=== PATIENT | female | born 1940 | race Caucasian/White ===

== ENCOUNTER 2020-01-03 16:36 | Emergency (ER) | payer MEDICARE, SELFPAY ==
[2020-01-03 16:48] VITALS: BP 121/72; PULSE 78; RESP 18; TEMP 36.2; O2SAT 95
--- NOTE | 2020-01-03 16:50 | ED.BACK ---
HPI - Back Pain/Injury General Chief Complaint: Urogenital-Female Stated Complaint: Back Pain Time Seen by Provider: 01/03/20 16:50 Source: patient and RN notes reviewed History of Present Illness HPI Narrative: Patient is a 79-year-old female who presents the urgent care with complaints of right-sided low back pain. Patient states that started this morning and she has not taken anything for her pain. Patient states she does have a history of a kidney stone in the right kidney but has never caused her issues and she has never had kidney stone removal. Patient denies any known trauma or injury. Denies any recent heavy lifting or strenuous activity. Denies of any urinary symptoms or complaints of abdominal pain. Denies of fever, chills, nausea, vomiting. No other acute complaints. No acute distress noted. Patient aware of the plan of care. Some parts of this dictation were generated by voice recognition software and may contain typographical and/or grammatical inaccuracies. Related Data Home Medications Medication Instructions Recorded Confirmed aspirin 81 mg PO DAILY 01/03/20 01/03/20 cholecalciferol (vitamin D3) 50 mcg PO DAILY 01/03/20 01/03/20 [Vitamin D3] cyanocobalamin (vitamin B-12) 2,000 mcg PO DAILY 01/03/20 01/03/20 [Vitamin B-12] dicyclomine 20 mg PO QID 01/03/20 01/03/20 hydrochlorothiazide 12.5 mg PO DAILY 01/03/20 01/03/20 levothyroxine 75 mcg PO DAILY 01/03/20 01/03/20 losartan 50 mg PO DAILY 01/03/20 01/03/20 metoprolol succinate 100 mg PO DAILY 01/03/20 01/03/20 pravastatin 10 mg PO DAILY 01/03/20 01/03/20 sitagliptin-metformin [Janumet XR] 1 tablet PO DAILY 01/03/20 01/03/20 spironolactone 25 mg PO DAILY 01/03/20 01/03/20 Allergies Allergy/AdvReac Type Severity Reaction Status Date / Time No Known Allergies Allergy Verified 01/03/20 17:05 Review of Systems Review of Systems: Narrative: CONSTITUTIONAL: Denies fever, chills, or sweats. EYES: Denies visual changes, redness, or discharge. ENT: Denies rhinorrhea, congestion, sore throat, or otalgia. CARDIOVASCULAR: Denies chest pain, palpitations, or edema. RESPIRATORY: Denies cough or dyspnea. GASTROINTESTINAL: Denies abdominal pain, nausea, vomiting, or diarrhea. GENITOURINARY: Denies dysuria or hematuria. SKIN: Denies rash or itching. MUSCULOSKELETAL: Reports of right-sided low back pain NEUROLOGIC: Denies headache, numbness, or weakness. All other systems reviewed are negative, except as documented in HPI. PMFSH Comments At the time of my signature, I reviewed and agree with the nursing past medical, surgical, social, and family history. There is no relevant family history pertinent to the patient complaint. Exam Narrative: Exam Narrative: GENERAL: This is a well-nourished, well-developed patient, in no apparent distress. HEAD: normocephalic, atraumatic. EYES: PERRL. Sclera clear/white. Vision is grossly intact. EARS: External ears normal NOSE: External nose normal with no obvious nasal discharge, nares without redness, no rhinorrhea. THROAT: Mucous membranes moist NECK: Neck supple CARDIOVASCULAR: Regular rate and rhythm without murmurs, gallops, or rubs. RESPIRATORY: Clear to auscultation. Breath sounds equal bilaterally. No wheezes, rales, or rhonchi. GASTROINTESTINAL: Abdomen soft, non-tender, nondistended. SKIN: warm, intact with no suspicious lesions or rash, good texture and turgor. NEURO: awake, alert, and oriented to person, place and time. There were no obvious focal neurologic abnormalities. EXTREMITIES: No clubbing, cyanosis, or edema. BACK: Mild to moderate low right lumbar tenderness with mild positive right SLE. Negative bilateral CVA tenderness Course Vital Signs Vital signs: Vital Signs Temperature 97.1 F L 01/03/20 16:48 Pulse Rate 78 01/03/20 16:48 Respiratory Rate 18 01/03/20 16:48 Blood Pressure 121/72 01/03/20 16:48 Pulse Oximetry 95 01/03/20 16:48 Temperature 97.1 F L 01/03/20 16:48
== END 2020-01-03 17:25 | disposition home or self-care (01) ==
PROVIDERS: Emergency Provider Nurse Practitioner Family; PCP Internal Medicine
DX: M54.5 Low back pain (principal); E78.00 Pure hypercholesterolemia, unspecified; I10 Essential (primary) hypertension; J44.9 Chronic obstructive pulmonary disease, unspecified; E11.9 Type 2 diabetes mellitus without complications
CPT/HCPCS: 81003; 99204; G0463

== ENCOUNTER 2021-08-24 13:40 | Emergency (ER) | payer MEDICARE, SELFPAY ==
[2021-08-24 13:53] VITALS: BP 150/64; PULSE 59; RESP 16; TEMP 36.7; O2SAT 97
--- NOTE | 2021-08-24 14:34 | ED.DIZZY ---
HPI - Dizziness General Chief Complaint: Dizziness Stated Complaint: dizzy and hoping its from ears Time Seen by Provider: 08/24/21 14:34 Source: patient Mode of arrival: ambulatory Limitations: no limitations History of Present Illness HPI Narrative: 80-year-old female presents with concern for dizziness intermittently for 1 week. Reports the dizziness is elicited when she moves her head or rolls over in bed. Reports the dizziness is intermittent and she may not have dizziness for several days. She also reports intermittent headache that may be on the left or the right. She denies vision changes, difficulty speaking, difficulty swallowing, weakness in any extremity, thunderclap headache. MD elicited complaint: dizziness Related Data Home Medications Medication Instructions Recorded Confirmed aspirin 81 mg PO DAILY 01/03/20 08/24/21 cholecalciferol (vitamin D3) 50 mcg PO DAILY 01/03/20 08/24/21 [Vitamin D3] cyanocobalamin (vitamin B-12) 2,000 mcg PO DAILY 01/03/20 08/24/21 [Vitamin B-12] dicyclomine 20 mg PO QID 01/03/20 08/24/21 hydrochlorothiazide 12.5 mg PO DAILY 01/03/20 08/24/21 levothyroxine 75 mcg PO DAILY 01/03/20 08/24/21 losartan 50 mg PO DAILY 01/03/20 08/24/21 metoprolol succinate 100 mg PO DAILY 01/03/20 08/24/21 pravastatin 10 mg PO DAILY 01/03/20 08/24/21 sitagliptin-metformin [Janumet XR] 1 tablet PO DAILY 01/03/20 08/24/21 spironolactone 25 mg PO DAILY 01/03/20 08/24/21 cholestyramine (with sugar) 4 ea PO DAILY 08/24/21 08/24/21 escitalopram oxalate 10 mg PO DAILY 08/24/21 08/24/21 Allergies Allergy/AdvReac Type Severity Reaction Status Date / Time No Known Allergies Allergy Verified 01/03/20 17:05 Review of Systems Review of Systems: CONSTITUTIONAL: Denies malaise, chills, sweats, or fever. EYES: Denies visual changes ENT: Denies rhinorrhea, congestion, sinus pain, otalgia or sore throat. CARDIOVASCULAR: Denies chest pain, palpitations, or edema. RESPIRATORY: Denies cough or dyspnea. GASTROINTESTINAL: Reports occasional nausea MUSCULOSKELETAL: Denies myalgia. NEUROLOGIC: Denies numbness, weakness reports intermittent headache and intermittent dizziness All systems reviewed & are unremarkable except as noted in HPI and below PMFSH Comments At time of signature, agree with nursing past medical, surgical, social and family history. There is no relevant family history pertinent to the presenting complaint Exam Narrative: GENERAL: Well-appearing, well-nourished, and in no acute distress. HEAD: Normocephalic, atraumatic. EYES: PERRLA, sclera clear, and EOMI. No nystagmus. ENT: Nares clear. Mucous membranes moist. TM pearly ca with sharp light reflex bilaterally; no tragal tenderness. NECK: Supple. No lymphadenopathy. No jugular venous distension, thyromegaly, or carotid bruits. Carotids were easily palpable bilaterally. CHEST: No respiratory distress. Speaks in full sentences. HEART: Regular rate and rhythm. No murmur heard. Normal peripheral pulses. EXTREMITIES: Normal range of motion. No edema. Normal strength and sensation. No drifting SKIN: Warm, dry, no visible rash. NEURO: Alert and oriented x3. No focal deficits. Cranial nerves II through XII grossly intact. Abel-Hallpike test positive on the left PSYCH: Normal mood and affect Course Course Emergency Course: Patient is aware of diagnosis, understands and agrees to treatment plan. Anticipatory guidance given. Patient agrees to follow-up as directed and is aware of reasons to seek care at the emergency department. Portions of this record may have been created with voice recognition software Level of Care: Express Care Visit Vital Signs Vital signs: Vital Signs Temperature 98.0 F 08/24/21 13:53 Pulse Rate 59 L 08/24/21 13:53 Respiratory Rate 16 08/24/21 13:53 Blood Pressure 150/64 H 08/24/21 13:53 Pulse Oximetry 97 08/24/21 13:53 Temperature 98.0 F 08/24/21 13:53 Pulse Rate 59 L 08/24/21 13:53 Respiratory
== END 2021-08-24 14:55 | disposition home or self-care (01) ==
PROVIDERS: Emergency Provider Nurse Practitioner; PCP Internal Medicine
DX: H81.12 Benign paroxysmal vertigo, left ear (principal); E78.00 Pure hypercholesterolemia, unspecified; I10 Essential (primary) hypertension; J44.9 Chronic obstructive pulmonary disease, unspecified; E11.9 Type 2 diabetes mellitus without complications; F32.A Depression, unspecified
CPT/HCPCS: 99213; G0463

== ENCOUNTER 2022-06-28 17:23 | Emergency (ER) | payer MEDICARE, SELFPAY ==
--- NOTE | 2022-06-28 17:25 | ED.LOWEXIN ---
HPI - Extremity Injury (Lower) General Chief Complaint: Extremity Injury, Lower Stated Complaint: Fall Injury/Left Leg Time Seen by Provider: 06/28/22 17:25 Source: patient and RN notes reviewed History of Present Illness HPI Narrative: Patient is a 81-year-old female who presents to urgent care with complaints of left lower leg swelling, pain and redness. Patient states her fell on top of her leg and then she had with a car door on Tuesday. Patient states that swelling and pain has gotten worse over the last couple days. Denies any history of DVT. Denies any shortness of breath or chest discomfort. States that she does take a baby aspirin a day. No other acute complaints. No acute distress noted. Patient aware of the plan of care. Some parts of this dictation were generated by voice recognition software and may contain typographical and/or grammatical inaccuracies. Related Data Home Medications Medication Instructions Recorded Confirmed aspirin 81 mg tablet,delayed 81 mg PO DAILY 01/03/20 08/24/21 release cholecalciferol (vitamin D3) 50 50 mcg PO DAILY 01/03/20 08/24/21 mcg (2,000 unit) capsule (Vitamin D3) cyanocobalamin (vitamin B-12) 2,000 mcg PO DAILY 01/03/20 08/24/21 2,000 mcg tablet,extended release (Vitamin B-12 ER) dicyclomine 20 mg tablet 20 mg PO QID 01/03/20 08/24/21 hydrochlorothiazide 12.5 mg tablet 12.5 mg PO DAILY 01/03/20 08/24/21 levothyroxine 75 mcg tablet 75 mcg PO DAILY 01/03/20 08/24/21 losartan 50 mg tablet 50 mg PO DAILY 01/03/20 08/24/21 metoprolol succinate 200 mg 100 mg PO DAILY 01/03/20 08/24/21 tablet,extended release 24 hr pravastatin 10 mg tablet 10 mg PO DAILY 01/03/20 08/24/21 sitagliptin phos 100 mg-metformin 1 tablet PO DAILY 01/03/20 08/24/21 ER 1,000 mg tablet,extend rel 24h mp (Janumet XR) spironolactone 25 mg tablet 25 mg PO DAILY 01/03/20 08/24/21 cholestyramine (with sugar) 4 gram 4 ea PO DAILY 08/24/21 08/24/21 oral powder escitalopram oxalate 10 mg tablet 10 mg PO DAILY 08/24/21 08/24/21 Allergies Allergy/AdvReac Type Severity Reaction Status Date / Time No Known Allergies Allergy Verified 01/03/20 17:05 Review of Systems Review of Systems: CONSTITUTIONAL: Denies fever, chills, or sweats. EYES: Denies visual changes, redness, or discharge. ENT: Denies rhinorrhea, congestion, sore throat, or otalgia. CARDIOVASCULAR: Denies chest pain, palpitations, or edema. RESPIRATORY: Denies cough or dyspnea. GASTROINTESTINAL: Denies abdominal pain, nausea, vomiting, or diarrhea. GENITOURINARY: Denies dysuria or hematuria. SKIN: Denies rash or itching. MUSCULOSKELETAL: Reports of left lower leg swelling, redness and pain NEUROLOGIC: Denies headache, numbness, or weakness. All other systems reviewed are negative, except as documented in HPI. PMFSH Comments At the time of my signature, I reviewed and agree with the nursing past medical, surgical, social, and family history. There is no relevant family history pertinent to the patient complaint. Exam Narrative: GENERAL: This is a well-nourished, well-developed patient, in no apparent distress. HEAD: normocephalic, atraumatic. EYES: PERRL. Sclera clear/white. Vision is grossly intact. EARS: External ears normal NOSE: External nose normal with no obvious nasal discharge, nares without redness, no rhinorrhea. THROAT: Mucous membranes moist NECK: Neck supple, non-tender without lymphadenopathy, masses or thyromegaly. CARDIOVASCULAR: Regular rate and rhythm RESPIRATORY: Clear to auscultation. Breath sounds equal bilaterally. No wheezes, rales, or rhonchi. SKIN: warm, intact with no suspicious lesions or rash, good texture and turgor. NEURO: awake, alert, and oriented to person, place and time. There were no obvious focal neurologic abnormalities. EXTREMITIES: 10 x 15 area of firm erythema with surrounding ecchymosis from the knee to the ankle and 2+ pitting edema to left lower extremity. Positi
[2022-06-28 17:36] VITALS: BP 129/68; PULSE 68; RESP 16; TEMP 36.6; O2SAT 98
== END 2022-06-28 18:04 | disposition left against medical advice (07) ==
PROVIDERS: Emergency Provider Nurse Practitioner Family; PCP Internal Medicine
DX: S89.92XA Unspecified injury of left lower leg, initial encounter (principal); Z79.82 Long term (current) use of aspirin; W50.0XXA Accidental hit or strike by another person, initial encounter
CPT/HCPCS: 99211; G0463

== ENCOUNTER 2025-03-26 07:36 | Outpatient (CLI) | payer MEDICARE, SELFPAY ==
--- OUTSIDE RECORDS SUMMARY | 2025-03-26 07:45 | XMS_ITS | Encounter Summary ---
Author Organization [facility] Address [address] [place] [address] Care Team Providers Care Automatic Nailing Machine Operator Name Role Phone Mychal Burgess MD Primary Care Provider [phone] Encounter Details Date Type Department Care Team (Late Contact Info) Description 01/13/2006 Outpatient Historical [facility] Internal Medicine [address] [address] Mychal Burgess MD [address] [place] [address] Social History Tobacco Use Types Packs/Day Years Used Date Smoking Tobacco: Never Assessed Comments Unknown Sex and Gender Information Value Date Recorded Sex Assigned at Not on file Legal Sex Female 3:58 AM TESTING AND REGULATING CHIEF Gender Identity Not on file Sexual Orientation Not on file documented as of this encounter Last Filed Vital Signs Vital Sign Reading Time Taken Comments Blood Pressure 122/72 01/13/2006 2:15 PM CDT Pulse - - Temperature - - Respiratory Rate - - Oxygen Saturation - - Inhaled Oxygen Concentration - - Weight 108 kg (238 lb) 01/13/2006 2:15 PM CDT Height - - Body Mass Index - - documented in this encounter Plan of Treatment Upcoming Encounters Date Type Department Care Team (Late Contact Info) Description 03/29/2025 9:40 AM TESTING AND REGULATING CHIEF Office Visit [facility] Primary Care [address] [place] [address] Mychal Burgess MD [address] [place] [address] [address] [place] [address] documented as of this encounter Visit Diagnoses Not on filedocumented in this encounter Care Teams Automatic Nailing Machine Operator Relationship Specialty Start Date End Date Mychal Burgess MD PCP - General 07/19/07 documented as of this encounter
--- OUTSIDE RECORDS SUMMARY | 2025-03-26 07:45 | XMS_ITS | Encounter Summary ---
Author Organization [facility] Address [address] [place] [address] Care Team Providers Care Cutter And Edge Trimmer Name Role Phone Mychal Burgess MD Primary Care Provider [phone] Reason for Visit * Reason Comments Needs Orders Written Encounter Details Date Type Department Care Team ([facility] st Contact Info) Description 03/25/2025 Telephone [facility] Primary Care [address] [place] [address] Mychal Burgess MD [address] [place] [address] [address] [place] [address] Needs Orders Written Social History Tobacco Use Types Packs/Day Years Used Date Smoking Tobacco: Former Cigarettes 1 35 0 04/11/1966 - 04/11/2001 Passive Smoke Exposure: Past Smokeless Tobacco: Never Alcohol Use Standard Drinks/Week Comments No 0 (1 standard drink = 0.6 oz pur e alcohol) Financial Resource Strain Answer Date R ecorded How hard is it for you to pa y for the very basics like food, housing, medical care, and heating? Not hard at all 05/26/2021 Food Insecurity Answer Date Recorded In the past 12 months, have you worried that your food would run out before you had money to buy more? Never true 05/26/2021 In the past 12 months, did y ou run out of food and didn't have money to buy more? Never true 05/26/2021 Transportation Needs Answer Date Record ed In the past 12 months, has l ack of transportation kept you from medical appointments or from getting medications? No 05/26/2021 Lack of Transportation (Non-Medical) Not on file 05/26/2021 Comments No Sex and Gender Information Value Date Recorded Sex Assigned at Not on file Legal Sex Female 3:58 AM RESILIENT TILE INSTALLER Gender Identity Not on file Sexual Orientation Not on file documented as of this encounter Miscellaneous Notes * Telephone Encounter - Ade Aquino RN - 03/25/2025 3:20 PM RESILIENT TILE INSTALLER Lab orders faxed to the number requested LIENT TILE INSTALLER * Telephone Encounter - Aristeo Rowland - 03/25/2025 3:05 PM RESILIENT TILE INSTALLER Copied from [facility] #[id number]. Topic: CPA Information Request - Order or Referral Request >> Mar 25, 2025 3:03 PM Ariseto Munoz wrote: Caller Name: Selena Mcnamara Patient/Caregiver Callback Number: Telephone Information: Call Notes: Please fax the lab orders to [facility] labs: [phone] Needing orders fax MARCO because she is going to get labs done tomorrow morning. Caller is requesting: New Lab Order Order: existing lab orders Reason for Request: to get done before upcoming appointment LIENT TILE INSTALLER documented in this encounter Plan of Treatment Upcoming Encounters Date Type Department Care Team (Late st Contact Info) Description 03/29/2025 9:40 AM RESILIENT TILE INSTALLER Office Visit [facility] [address] [place] [address] Mychal Burgess MD [address] [place] [address] [place] [address] documented as of this encounter Visit Diagnoses Not on filedocumented in this encounter Care Teams Cutter And Edge Trimmer Relationship Specialty Start Date End Date Mychal Burgess MD PCP - General 07/19/07 documented as of this encounter
--- OUTSIDE RECORDS SUMMARY | 2025-03-26 07:45 | XMS_ITS | Encounter Summary ---
Author Organization [facility] Address [address] [place] [address] Care Team Providers Care Sand Technologist Name Role Phone Mychal Burgess MD Primary Care Provider [phone] Encounter Details Date Type Department Care Team (Late st Contact Info) Description 12/11/2004 Outpatient Historical [facility] Internal Medicine [address] [address] Mychal Burgess MD [address] [place] [address] [address] [place] [address] Social History Tobacco Use Types Packs/Day Years Used Date Smoking Tobacco: Never Assessed Comments Unknown Sex and Gender Information Value Date Recorded Sex Assigned at Not on file Legal Sex Female 3:58 AM CONTRACT DESIGNER Gender Identity Not on file Sexual Orientation Not on file documented as of this encounter Last Filed Vital Signs Vital Sign Reading Time Taken Comments Blood Pressure 130/80 12/11/2004 9:30 AM CDT Pulse - - Temperature - - Respiratory Rate - - Oxygen Saturation - - Inhaled Oxygen Concentration - - Weight 104.3 kg (230 lb) 12/11/2004 9:30 AM CDT Height - - Body Mass Index - - documented in this encounter Plan of Treatment Upcoming Encounters Date Type Department Care Team (Late st Contact Info) Description 03/29/2025 9:40 AM CONTRACT DESIGNER Office Visit [facility] Primary Care [address] [place] [address] Mychal Burgess MD [address] [place] [address] [address] [place] [address] documented as of this encounter Visit Diagnoses Not on filedocumented in this encounter Care Teams Sand Technologist Relationship Specialty Start Date End Date Mychal Burgess MD PCP - General 07/19/07 documented as of this encounter
--- OUTSIDE RECORDS SUMMARY | 2025-03-26 07:45 | XMS_ITS | Encounter Summary ---
Author Organization [facility] Address [address] [place] [address] Care Team Providers Care Supervisor Cellars Name Role Phone Mychal Burgess MD Primary Care Provider [phone] Encounter Details Date Type Department Care Team (Late Contact Info) Description 10/01/2005 Outpatient Historical [facility] Internal Medicine [address] [address] Mychal Burgess MD [address] [place] [address] Social History Tobacco Use Types Packs/Day Years Used Date Smoking Tobacco: Never Assessed Comments Unknown Sex and Gender Information Value Date Recorded Sex Assigned at Not on file Legal Sex Female 3:58 AM SEAFOOD PREPARER Gender Identity Not on file Sexual Orientation Not on file documented as of this encounter Last Filed Vital Signs Vital Sign Reading Time Taken Comments Blood Pressure 132/80 10/01/2005 9:15 AM CDT Pulse - - Temperature - - Respiratory Rate - - Oxygen Saturation - - Inhaled Oxygen Concentration - - Weight 108 kg (238 lb) 10/01/2005 9:15 AM CDT Height - - Body Mass Index - - documented in this encounter Plan of Treatment Upcoming Encounters Date Type Department Care Team (Late Contact Info) Description 03/29/2025 9:40 AM SEAFOOD PREPARER Office Visit [facility] Primary Care [address] [place] [address] Mychal Burgess MD [address] [place] [address] [address] [place] [address] documented as of this encounter Visit Diagnoses Not on filedocumented in this encounter Care Teams Supervisor Cellars Relationship Specialty Start Date End Date Mychal Burgess MD PCP - General 07/19/07 documented as of this encounter
--- OUTSIDE RECORDS SUMMARY | 2025-03-26 07:45 | XMS_ITS | Encounter Summary ---
Author Organization [facility] Address [address] [place] [address] Care Team Providers Care Air Saw Operator Name Role Phone Mychal Burgess MD Primary Care Provider [phone] Encounter Details Date Type Department Care Team (Late Contact Info) Description 11/29/2003 Outpatient Historical [facility] Internal Medicine [address] [address] Mychal Burgess MD [address] [place] [address] Social History Tobacco Use Types Packs/Day Years Used Date Smoking Tobacco: Never Assessed Comments Unknown Sex and Gender Information Value Date Recorded Sex Assigned at Not on file Legal Sex Female 3:58 AM MANAGED CARE PROVIDER Gender Identity Not on file Sexual Orientation Not on file documented as of this encounter Plan of Treatment Upcoming Encounters Date Type Department Care Team (Late st Contact Info) Description 03/29/2025 9:40 AM MANAGED CARE PROVIDER Office Visit [facility] Primary Care [address] [place] [address] Mychal Burgess MD [address] [place] [address] [address] [place] [address] documented as of this encounter Visit Diagnoses Not on filedocumented in this encounter Care Teams Air Saw Operator Relationship Specialty Start Date End Date Mychal Burgess MD PCP - General 07/19/07 documented as of this encounter
--- OUTSIDE RECORDS SUMMARY | 2025-03-26 07:45 | XMS_ITS | Encounter Summary ---
Author Organization [facility] Address [address] [place] [address] Care Team Providers Care Landfill Gas Plant Field Technician Name Role Phone Mychal Burgess MD Primary Care Provider [phone] Encounter Details Date Type Department Care Team (Late Contact Info) Description 11/29/2003 Outpatient Historical [facility] Internal Medicine [address] [address] Mychal Burgess MD [address] [place] [address] Social History Tobacco Use Types Packs/Day Years Used Date Smoking Tobacco: Never Assessed Comments Unknown Sex and Gender Information Value Date Recorded Sex Assigned at Not on file Legal Sex Female 3:58 AM TECHNICAL SALES REPRESENTATIVES Gender Identity Not on file Sexual Orientation Not on file documented as of this encounter Plan of Treatment Upcoming Encounters Date Type Department Care Team (Late st Contact Info) Description 03/29/2025 9:40 AM TECHNICAL SALES REPRESENTATIVES Office Visit [facility] Primary Care [address] [place] [address] Mychal Burgess MD [address] [place] [address] [address] [place] [address] documented as of this encounter Visit Diagnoses Not on filedocumented in this encounter Care Teams Landfill Gas Plant Field Technician Relationship Specialty Start Date End Date Mychal Burgess MD PCP - General 07/19/07 documented as of this encounter
--- OUTSIDE RECORDS SUMMARY | 2025-03-26 07:45 | XMS_ITS | Encounter Summary ---
Author Organization [facility] Address [address] [place] [address] Care Team Providers Care Ingredient Scaler Name Role Phone Mychal Burgess MD Primary Care Provider [phone] Encounter Details Date Type Department Care Team (Late st Contact Info) Description 10/22/2005 Outpatient Historical [facility] Internal Medicine [address] [address] Mychal Burgess MD [address] [place] [address] [address] [place] [address] Social History Tobacco Use Types Packs/Day Years Used Date Smoking Tobacco: Never Assessed Comments Unknown Sex and Gender Information Value Date Recorded Sex Assigned at Not on file Legal Sex Female 3:58 AM CONSTRUCTION EQUIPMENT MECHANIC HELPER Gender Identity Not on file Sexual Orientation Not on file documented as of this encounter Last Filed Vital Signs Vital Sign Reading Time Taken Comments Blood Pressure 112/70 10/22/2005 11:45 AM CDT Pulse - - Temperature 36.2 C (97.2 F) 10/22/2005 11:45 AM CDT Respiratory Rate - - Oxygen Saturation - - Inhaled Oxygen Concentration - - Weight 107 kg (236 lb) 10/22/2005 11:45 AM CDT Height - - Body Mass Index - - documented in this encounter Plan of Treatment Upcoming Encounters Date Type Department Care Team (Late Contact Info) Description 03/29/2025 9:40 AM CONSTRUCTION EQUIPMENT MECHANIC HELPER Office Visit [facility] Primary Care [address] [place] [address] Mychal Burgess MD [address] [place] [phone] documented as of this encounter Visit Diagnoses Not on filedocumented in this encounter Care Teams Ingredient Scaler Relationship Specialty Start Date End Date Mychal Burgess MD PCP - General 07/19/07 documented as of this encounter
--- OUTSIDE RECORDS SUMMARY | 2025-03-26 07:45 | XMS_ITS | Encounter Summary ---
Author Organization [facility] Address [address] [place] [address] Care Team Providers Care Coffee Grower Name Role Phone Mychal Burgess MD Primary Care Provider [phone] Encounter Details Date Type Department Care Team (Late Contact Info) Description 07/08/2006 Outpatient Historical [facility] Internal Medicine [address] [address] Mychal Burgess MD [address] [place] [address] Social History Tobacco Use Types Packs/Day Years Used Date Smoking Tobacco: Never Assessed Comments Unknown Sex and Gender Information Value Date Recorded Sex Assigned at Not on file Legal Sex Female 3:58 AM LINUX NETWORK ENGINEER Gender Identity Not on file Sexual Orientation Not on file documented as of this encounter Last Filed Vital Signs Vital Sign Reading Time Taken Comments Blood Pressure 120/74 07/08/2006 9:45 AM CDT Pulse - - Temperature - - Respiratory Rate - - Oxygen Saturation - - Inhaled Oxygen Concentration - - Weight 112 kg (247 lb) 07/08/2006 9:45 AM CDT Height - - Body Mass Index - - documented in this encounter Plan of Treatment Upcoming Encounters Date Type Department Care Team (Late Contact Info) Description 03/29/2025 9:40 AM LINUX NETWORK ENGINEER Office Visit [facility] Primary Care [address] [place] [address] Mychal Burgess MD [address] [place] [address] [address] [place] [address] documented as of this encounter Visit Diagnoses Not on filedocumented in this encounter Care Teams Coffee Grower Relationship Specialty Start Date End Date Mychal Burgess MD PCP - General 07/19/07 documented as of this encounter
--- OUTSIDE RECORDS SUMMARY | 2025-03-26 07:45 | XMS_ITS | Encounter Summary ---
Author Organization [facility] Address [address] [place] [address] Care Team Providers Care Android Software Engineer Name Role Phone Mychal Burgess MD Primary Care Provider [phone] Encounter Details Date Type Department Care Team (Late Contact Info) Description 11/29/2003 Outpatient Historical [facility] Internal Medicine [address] [address] Mychal Burgess MD [address] [place] [address] Social History Tobacco Use Types Packs/Day Years Used Date Smoking Tobacco: Never Assessed Comments Unknown Sex and Gender Information Value Date Recorded Sex Assigned at Not on file Legal Sex Female 3:58 AM AUTOMOTIVE ENGINEERING TEACHER Gender Identity Not on file Sexual Orientation Not on file documented as of this encounter Plan of Treatment Upcoming Encounters Date Type Department Care Team (Late st Contact Info) Description 03/29/2025 9:40 AM AUTOMOTIVE ENGINEERING TEACHER Office Visit [facility] Primary Care [address] [place] [address] Mychal Burgess MD [address] [place] [address] [address] [place] [address] documented as of this encounter Visit Diagnoses Not on filedocumented in this encounter Care Teams Android Software Engineer Relationship Specialty Start Date End Date Mychal Burgess MD PCP - General 07/19/07 documented as of this encounter
--- OUTSIDE RECORDS SUMMARY | 2025-03-26 07:45 | XMS_ITS | Encounter Summary ---
Author Organization [facility] Address [address] [place] [address] Care Team Providers Care Washhouse Worker Name Role Phone Mychal Burgess MD Primary Care Provider [phone] Encounter Details Date Type Department Care Team (Late st Contact Info) Description 08/20/2005 Orders Only [facility] Internal Medicine [address] [address] Mychal Burgess MD [address] [place] [address] Social History Tobacco Use Types Packs/Day Years Used Date Smoking Tobacco: Never Assessed Comments Unknown Sex and Gender Information Value Date Recorded Sex Assigned at Not on file Legal Sex Female 3:58 AM HEDIS COORDINATOR Gender Identity Not on file Sexual Orientation Not on file documented as of this encounter Progress Notes * Mychal Burgess MD - 01/19/2008 4:28 AM CDT TIME:02:28 pm PATIENT`S HOME PHONE: PATIENT`S WORK PHONE: PATIENT`S INSURANCE: [employer] WHO TOOK THE CALL: Margarita Brown S GENERAL INFORMATION WHO CALLED: Pharmacy called.[phone] SECTION 1: REQUESTED ACTION karan 08/20/05 at 02:29 pm: MEDICATION REQUEST: MEDICATION REQUEST: Patient requests a refill. Clonidine 1mg #60 last filled 07/22 DOCTOR`S RESPONSE: bari 08/20/05 at 02:34 pm MEDICATIONS: CLONIDINE HCL ORAL TABLET 0.1 MG, 1 Two Times A Day, 60 Dispensed, 4 Fills, status: CONTINUED, 08/20/2005. FINAL ACTION: karina 08/20/05 at 02:38 pm Called pharmacy at 08/20/05 at 02:38 pm. Electronically Signed by: Ely Corral on Saturday, August 20, 2005 documented in this encounter Plan of Treatment Upcoming Encounters Date Type Department Care Team (Late st Contact Info) Description 03/29/2025 9:40 AM HEDIS COORDINATOR Office Visit [facility] Primary Care [address] [place] [address] Mychal Burgess MD [address] [place] [address] documented as of this encounter Visit Diagnoses Not on filedocumented in this encounter Care Teams Washhouse Worker Relationship Specialty Start Date End Date Mychal Burgess MD PCP - General 07/19/07 documented as of this encounter
--- OUTSIDE RECORDS SUMMARY | 2025-03-26 07:45 | XMS_ITS | Encounter Summary ---
Author Organization [facility] Address [address] [place] [address] Care Team Providers Care Selling Specialist Name Role Phone Mychal Burgess MD Primary Care Provider [phone] Encounter Details Date Type Department Care Team (Late Contact Info) Description 10/25/2006 Orders Only [facility] Internal Medicine [address] [address] Mychal Burgess MD [address] [place] [address] Social History Tobacco Use Types Packs/Day Years Used Date Smoking Tobacco: Never Assessed Comments Unknown Sex and Gender Information Value Date Recorded Sex Assigned at Not on file Legal Sex Female 3:58 AM OFFICE PROFESSIONAL Gender Identity Not on file Sexual Orientation Not on file documented as of this encounter Plan of Treatment Upcoming Encounters Date Type Department Care Team (Late Contact Info) Description 03/29/2025 9:40 AM OFFICE PROFESSIONAL Office Visit [facility] Primary Care [address] [place] [address] Mychal Burgess MD [address] [place] [address] [address] [place] [address] documented as of this encounter Visit Diagnoses Not on filedocumented in this encounter Care Teams Selling Specialist Relationship Specialty Start Date End Date Mychal Burgess MD PCP - General 07/19/07 documented as of this encounter
--- OUTSIDE RECORDS SUMMARY | 2025-03-26 07:45 | XMS_ITS | Clinical Summary ---
Author Organization [facility] Address [address] [place] [address] Care Team Providers Care Crank Hand Name Role Phone Mychal Burgess MD Primary Care Provider + Allergies No known active allergies Medications diphenoxylate- atropine (LOMOTIL) 2.5-0.025 mg per tablet take 1 tablet (2.5MG) by ORAL route every day 0 12/10/19 12 Active Additional Information Patient not taking.Reported on 02/27/2025 spironolactone (ALDACTONE) 25 mg tablet take 1 tablet (25MG) by ORAL route every day 0 12/10/19 12 Active losartan (COZAAR) 50 mg tablet take 1 tablet (50MG) by oral route every day 0 12/10/19 12 Active metoprolol XL (TOPROL-XL) 100 mg 24 hr tablet take 1 tablet (100MG) by oral route every day 0 12/10/19 12 Active dicyclomine (BENTYL) 20 mg tablet TAKE ONE TABLET BY MOUTH FOUR TIMES DAILY 120 tablet 10/30/19 17 Active cholestyramine (QUESTRAN) 4 gram packet TAKE 1 PACKET DISSOLVED IN 2 TO 6 OUNCES OF WATER OR NONCARBONATED BEVERAGE BY MOUTH THREE TIMES DAILY 90 packet 11 04/20/19 19 Active Additional Information Patient not taking.Reported on 02/27/2025 albuterol HFA (PROVENTIL HFA,VENTOLIN HFA,PROAIR HFA) 90 mcg/actuation inhaler Inhale 2 puffs every 6 (six) hours as needed 01/11/20 17 Active fluticasone propionate (FLONASE) 50 mcg/actuation nasal spray Administer 2 sprays into affected nostril(s) daily 05/12/19 16 Active pravastatin (PRAVACHOL) 10 mg tablet TAKE 1 TABLET(10 MG) BY MOUTH IN THE EVENING 06/29/19 20 Active cholecalcifero l (VITAMIN D-3) 1,000 unit capsule Take 2 capsules by mouth daily Active calcium carbonate (CALCIUM 600 ORAL) Take 2 mg by mouth Active cyanocobalamin (Vitamin B-12) 1,000 mcg tabletIndicati ons:Prevention of Vitamin B12 Deficiency Take 1,000 mcg by mouth daily Active SITagliptin-me tformin (Janumet XR) 100-1,000 mg tablet, ER multiphase 24 hr TAKE 1 TABLET BY MOUTH EVERY DAY 07/09/19 21 Active blood glucose diagnostic strip One touch ultra mini, DX type 2 DM 09/19/19 21 Active furosemide (LASIX) 20 mg tablet Take 20 mg by mouth daily as needed 10/25/19 18 Active lancets misc Qd check one touch ultra 09/19/19 21 Active aspirin 81 mg enteric coated tablet Take 1 tablet by mouth daily Active amLODIPine (NORVASC) 5 mg tablet Take 1 tablet (5 mg total) by mouth daily Active busPIRone (BUSPAR) 10 mg tablet Take 1 tablet (10 mg total) by mouth 2 (two) times a day 11/22/19 25 Active fluocinonide (LIDEX) 0.05 % external solution 2-3 drops affected ear daily PRN itching 06/09/19 24 Active hydrALAZINE (APRESOLINE) 10 mg tablet TAKE 1 TABLET (10 MG) BY MOUTH 3 TIMES DAILY. Active metFORMIN XR (GLUCOPHAGE XR) 500 mg 24 hr tablet TAKE 2 TABLETS (1000 MG) BY MOUTH DAILY WITH BREAKFAST 01/12/20 25 Active Ozempic 0.25 mg or 0.5 mg (2 mg/3 mL) pen injector injection Inject 0.5 mg under the skin once a week 05/23/19 25 Active hydroCHLOROthi azide 12.5 mg capsule Take 1 tablet/capsule (12.5 mg total) by mouth daily 12/24/19 25 Active levothyroxine (SYNTHROID) 137 mcg tablet TAKE 1 TABLET (137 MCG) BY MOUTH DAILY IN THE MORNING. 12/04/19 25 Active hydroCHLOROthi azide (HYDRODIURIL) 25 mg tablet take 1 tablet (25MG) by oral route every day 0 12/10/19 12 025 Discontin ued(Dose adjustmen t) levothyroxine (LEVOTHROID) 50 mcg tablet take 1 tablet (50MCG) by oral route every day 0 12/10/19 12 025 Discontin ued(Dose adjustmen t) Active Problems Problem Noted Date Diagnosed Date Encounter for screening colonoscopy 01/02/2020 Overview (01/02/2020): Added automatically from request for surgery [id number] Family history of colon cancer 01/02/2020 Overview (01/02/2020): Added automatically from request for surgery [id number] Encounters Date Type Department Care Team Description 02/27/2025 9:00 AM EDITING COMPUTER PUBLISHER Office Visit [facility] [address] [place] [address] Bhargavi Gotti NP Foreign body of right ear, initial encounter (Primary Dx) from Last 3 Months Surgical History Surgery Date Site/Laterality Comments OTHER SURGICAL HISTORY 04/11/1997 - 04/10/1998 surgery on both feet CARDIAC CATHETERIZATION 04/11/2002 - 04/10/2003 cardiac catheterization CHOLECYSTECTOMY 04/11/2008 - 04/10/2009 Cholecystectomy HYSTERECTOMY 04/11/1984 - 04/10/1985 Hysterectomy OOPHORECTOMY 04/11/2004 - 04/10/2005 COLONOSCOPY 01/09/2010 - 02/08/2010 COLONOSCOPY 01/25/2020 Medical History Medical History Date Comments Hypertension Hypertension Disorder of thyroid Thyroid dise ase Calculus of kidney Nephrolithias is Hyperlipidemia Hyperlipidemia Family History Medical History Relation Name Comments Heart disease Father Heart disease; Heart disease Mother Heart disease; Hypertension Mother Hypertension; Stroke Mother Stroke; Other Sister 2 Auto accident; Hypertension Sister 3 Hypertension; Diabetes type II Sister 4 Diabetes me llitus type 2; Brain cancer Sister 5 Cancer -brain; Bladder Cancer Sister 6 Cancer, bladd er; Cause of : Cancer, bladder Breast cancer Neg Hx Ovarian cancer Neg Hx Thyroid cancer Neg Hx Relation Name Status Comments Father Mother Sister 1 Sister 2 Sister 3 Sister 4 Sister 5 Sister 6 Social History Tobacco Use Types Packs/Day Years Used Date Smoking Tobacco: Former Smokeless Tobacco: Never Alcohol Use Standard Drinks/Week Comments Yes 0 (1 standard drink = 0.6 oz pur e alcohol) Comments No Sex and Gender Information Value Date Recorded Sex Assigned at Not on file Legal Sex Female 1:26 AM EDITING COMPUTER PUBLISHER Gender Identity Not on file Sexual Orientation Not on file Obstetrics History Para Term AB IAB SAB Ectopic Multiple Livin g Live Births 3 3 3 Date Outcome GA Total Labor Labor/2nd/3rd Weight Sex Type Anes PTL Delicia A1 A5 Name Clin Term Term Term Last Filed Vital Signs Vital Sign Reading Time Taken Comments Blood Pressure 116/58 02/27/2025 8:54 AM EDITING COMPUTER PUBLISHER Pulse 68 02/27/2025 8:54 AM EDITING COMPUTER PUBLISHER Temperature 36.6 C (97.9 F) 02/27/2025 8:54 AM EDITING COMPUTER PUBLISHER Respiratory Rate 17 02/27/2025 8:54 AM EDITING COMPUTER PUBLISHER Oxygen Saturation 95% 02/27/2025 8:54 AM EDITING COMPUTER PUBLISHER Inhaled Oxygen Concentration - - Weight 88.4 kg (194 lb 12.8 oz) 02/27/2025 8:54 AM EDITING COMPUTER PUBLISHER Height 165.1 cm (5' 5) 02/27/2025 8:54 AM EDITING COMPUTER PUBLISHER Body Mass Index 32.42 02/27/2025 8:54 AM EDITING COMPUTER PUBLISHER Plan of Treatment Health Maintenance Due Date Last Done Comments Depression Screening 1942 Hepatitis B Screening 1960 Well Visit 65+ 12/14/2007 Fall Risk Assessment 01/24/2021 01/25/2020 Influenza Vaccine (#1) 2024 , 01/19/2023, 12/21/2021, Additional history exists Osteoporosis Screening-Bone Density Scan 03/29/2025 03/29/2023, 06/02/2020, 06/02/2020, Additional history exists DTaP/Tdap/Td Vaccine (3 - Td or Tdap) 12/20/2033 12/21/2023, 02/27/2014, 11/29/2003 Zoster Vaccine Completed 11/09/2017, 07/11, 07/30/2013 Pneumococcal vaccine 65+ Completed 024, 08/01/2018, 07/30/2013, Additional history exists Procedures Procedure Name Priority Date/Time Associated Diagnosis Comments AR RMVL FB XTRNL AUDITORY CANAL W/O ANES Routine 02/27/2025 9:17 AM EDITING COMPUTER PUBLISHER Foreign body of right ear, initial encounter DEXA AXIAL SKELETON BONE DENSITY 1 OR MORE SITES Schedule Routine, Read Routine (OP Routine) 03/29/2023 11:01 AM EDITING COMPUTER PUBLISHER Osteopenia of multiple sites from Last 3 Months or Most Recently Relevant to Health Maintenance Results * AR RMVL FB XTRNL AUDITORY CANAL W/O ANES (02/27/2025 9:17 AM EDITING COMPUTER PUBLISHER) Narrative Bhargavi Gotti NP - 02/27/2025 9:17 AM EDITING COMPUTER PUBLISHER Bhargavi Gotti NP 02/27/2025 9:21 AM Foreign Body Removal Date/Time: 02/27/2025 9:17 AM Performed by: Bhargavi Gotti NP Authorized by: Bhargavi Gotti NP Consent: Consent obtained: Verbal Consent given by: Patient Risks discussed: Bleeding, incomplete removal, nerve damage, infection, pain, poor cosmetic result and worsening of condition [place] protocol: Procedure explained and questions answered to patient or proxy's satisfaction: yes Patient identity confirmed: Verbally with patient Location: Location: Ear Ear location: R ear Tendon involvement: None Pre-procedure details: Imaging: None Procedure details: Localization method: Visualized Dissection of underlying tissues: no Bloodless field: yes Removal mechanism: Forceps Post-procedure details: Neurovascular status: intact Confirmation: No additional foreign bodies on visualization Skin closure: None Procedure completion: Tolerated Comments: Tip of hearing aid noted to right ear canal. No erythema/edema to the surrounding tissue. No discharge or bleeding noted. Tip of hearing aid was easily removed with alligator forceps. Exam after shows the TM is intact, no erythema/edema to surrounding tissue, no discharge or bleeding noted. us Bhargavi Gotti NP IN CLINIC/BEDSIDE ORDERABL ES Final Result * Dexa Axial Skeleton Bone Density 1 or 2 Site (03/29/2023 11:01 AM EDITING COMPUTER PUBLISHER) Anatomical Region Laterality Modality Body N/A Other 03/29/2023 5:41 PM EDITING COMPUTER PUBLISHER Narrative 03/29/2023 5:42 PM EDITING COMPUTER PUBLISHER EXAM DESCRIPTION: DEXA AXIAL SKELETON BONE DENSITY 1 OR MORE SITES REASON FOR STUDY: 82 y/o year old F with given history of: osteopenia Screening. Postmenopausal Real Estate Services Coordinator/Model: [employer] Discovery SL ([id number]/N [id number]) CLINICAL INFORMATION: Current height: 65 inches Maximum height: 66 inches Weight: 206 pounds Risk factors: Postmenopausal, adult fracture, inflammatory disease COMPARISON: 06/02/2020, 08/02/2017 Dissimilar scan types or analysis methods precludes assessment for calculating a significant change. FINDINGS: AP LUMBAR SPINE L1-L4: Total BMD is 1.138 g/cm2 T-score is 0.8 LEFT HIP: Total BMD is 0.957 g/cm2 T-score is 0.1 Femoral neck BMD is 0.716 g/cm2 T-score is -1.2 FRAX: 10 year risk for a major osteoporotic fracture is 17 %, 10 year risk for a hip fracture is 3.1 % IMPRESSION: Low Bone Mass. REFERENCE: Bone mineral density: Normal (T-score above or = -1.0) Low bone mass (T-score between -1.0 and -2.5) replaces the previously used term osteopenia Osteoporosis (T-score = or below -2.5) Medical evaluation for secondary causes of low bone mineral density may be appropriate. FRAX is a World Health Organization validated fracture risk assessment tool that calculates a person's 10 year probability of a major osteoporosis related fracture and hip fracture. According to the National Osteoporosis Foundation guidelines, postmenopausal women and men age 50 or older with low bone mass and a 10 year probability of a major osteoporosis related fracture = or greater than 20% or a 10 year probability of a hip fracture = or greater than 3% should be considered for treatment. For further information, including treatment recommendations, please refer to the 2019 ISCD Official Positions (http://www.iscd.org) and the NOF's Clinician's Guide to Prevention and Treatment of Osteoporosis (http://www.nof.org/professionals/clinical-guidelines) THIS IS AN ELECTRONICALLY VERIFIED FINAL REPORT 03/29/2023 5:42 PM - Electronically signed by Serge Coles M.D. MF: TESSIE Report ID: [id number] Reading Location: [id number] Note Serge Coles MD - 03/29/2023 EXAM DESCRIPTION: DEXA AXIAL SKELETON BONE DENSITY 1 OR MORE SITES REASON FOR STUDY: 82 y/o year old F with given history of: osteopenia Screening. Postmenopausal Real Estate Services Coordinator/Model: [employer] Discovery SL ([id number]/N [id number]) CLINICAL INFORMATION: Current height: 65 inches Maximum height: 66 inches Weight: 206 pounds Risk factors: Postmenopausal, adult fracture, inflammatory disease COMPARISON: 06/02/2020, 08/02/2017 Dissimilar scan types or analysis methods precludes assessment for calculating a significant change. FINDINGS: AP LUMBAR SPINE L1-L4: Total BMD is 1.138 g/cm2 T-score is 0.8 LEFT HIP: Total BMD is 0.957 g/cm2 T-score is 0.1 Femoral neck BMD is 0.716 g/cm2 T-score is -1.2 FRAX: 10 year risk for a major osteoporotic fracture is 17 %, 10 year risk for ahip fracture is 3.1 % IMPRESSION: Low Bone Mass. REFERENCE: Bone mineral density: Normal (T-score above or = -1.0) Low bone mass (T-score between -1.0 and -2.5) replaces thepreviously used term osteopenia Osteoporosis (T-score = or below -2.5) Medical evaluation for secondary causes of low bone mineral density may be appropriate. FRAX is a World Health Organization validated fracture risk assessmenttool that calculates a person's 10 year probability of a major osteoporosisrelated fracture and hip fracture. According to the National OsteoporosisFoundation guidelines, postmenopausal women and men age 50 or older with low bonemass and a 10 year probability of a major osteoporosis related fracture = or greater than 20% or a 10 year probability of a hip fracture = or greaterthan 3% should be considered for treatment. For further information, including treatment recommendations, please referto the 2019 ISCD Official Positions (http://www.iscd.org) and the NOF's Clinician's Guide to Prevention and Treatment of Osteoporosis (http://www.nof.org/professionals/clinical-guidelines) THIS IS AN ELECTRONICALLY VERIFIED FINAL REPORT 03/29/2023 5:42 PM - Electronically signed by Serge Coles M.D. MF: TESSIE Report ID: [id number] Reading Location: [place] [address] Mychal Burgess MD IMG DXA PROCEDURES Final Result from Last 3 Months or Most Recently Relevant to Health Maintenance Insurance [facility] Member Subscriber Plan / Payer ( fective 2020-Present) Name:Selena Mcnamara Relation to Subscriber:Self Name:Selena Mcnamara Payer ID:[id number] (NAIC) Group ID:[id number] Type:[employer] Address: [address] [facility] MEDICARE [facility] MEDICARE SUPPLEMENT Advance Directives For more information, please contact: [phone] * Full Code (Latest Code Status on File) Date Activated Date Inactivated Comments 01/25/2020 7:37 AM 01/25/2020 2:13 PM Care Teams Crank Hand Relationship Specialty Start Date End Date Mychal Burgess MD PCP - General 12/10/11
--- OUTSIDE RECORDS SUMMARY | 2025-03-26 07:45 | XMS_ITS | Encounter Summary ---
Author Organization [facility] Address [address] [place] [address] Care Team Providers Care Blind Installer Name Role Phone Mychal Burgess MD Primary Care Provider + Encounter Details Date Type Department Care Team (Late st Contact Info) Description 03/28/2023 Telephone [facility] [address] [place] [id number] Tatiana Prather, RT Social History Tobacco Use Types Packs/Day Years Used Date Smoking Tobacco: Former Smokeless Tobacco: Never Alcohol Use Standard Drinks/Week Comments Yes 0 (1 standard drink = 0.6 oz pur e alcohol) Comments No Sex and Gender Information Value Date Recorded Sex Assigned at Not on file Legal Sex Female 1:26 AM LOAN OFFICER Gender Identity Not on file Sexual Orientation Not on file documented as of this encounter Plan of Treatment Not on file documented as of this encounter Visit Diagnoses Not on filedocumented in this encounter Care Teams Blind Installer Relationship Specialty Start Date End Date Mychal Burgess MD PCP - General 12/10/11 documented as of this encounter
--- OUTSIDE RECORDS SUMMARY | 2025-03-26 07:45 | XMS_ITS | Encounter Summary ---
Author Organization [facility] Address [address] [place] [address] Care Team Providers Care President And Chief Executive Officer Name Role Phone Mychal Burgess MD Primary Care Provider [phone] Encounter Details Date Type Department Care Team (Late Contact Info) Description 03/31/2007 Outpatient Historical [facility] Internal Medicine [address] [address] Mychal Burgess MD [address] [place] [address] Social History Tobacco Use Types Packs/Day Years Used Date Smoking Tobacco: Never Assessed Comments Unknown Sex and Gender Information Value Date Recorded Sex Assigned at Not on file Legal Sex Female 3:58 AM SENIOR COST ANALYST Gender Identity Not on file Sexual Orientation Not on file documented as of this encounter Plan of Treatment Upcoming Encounters Date Type Department Care Team (Late st Contact Info) Description 03/29/2025 9:40 AM SENIOR COST ANALYST Office Visit [facility] Primary Care [address] [place] [address] Mychal Burgess MD [address] [place] [address] [address] [place] [address] documented as of this encounter Visit Diagnoses Not on filedocumented in this encounter Care Teams President And Chief Executive Officer Relationship Specialty Start Date End Date Mychal Burgess MD PCP - General 07/19/07 documented as of this encounter
--- OUTSIDE RECORDS SUMMARY | 2025-03-26 07:45 | XMS_ITS | Encounter Summary ---
Author Organization [facility] Address [address] [place] [address] Care Team Providers Care Hooker On Name Role Phone Mychal Burgess MD Primary Care Provider [phone] Encounter Details Date Type Department Care Team (Late Contact Info) Description 07/27/2006 Orders Only [facility] Internal Medicine [address] [address] Mychal Burgess MD [address] [place] [address] Social History Tobacco Use Types Packs/Day Years Used Date Smoking Tobacco: Never Assessed Comments Unknown Sex and Gender Information Value Date Recorded Sex Assigned at Not on file Legal Sex Female 3:58 AM HEAD OF PHYSICS Gender Identity Not on file Sexual Orientation Not on file documented as of this encounter Plan of Treatment Upcoming Encounters Date Type Department Care Team (Late st Contact Info) Description 03/29/2025 9:40 AM HEAD OF PHYSICS Office Visit [facility] Primary Care [address] [place] [address] Mychal Burgess MD [address] [place] [address] [address] [place] [address] documented as of this encounter Visit Diagnoses Not on filedocumented in this encounter Care Teams Hooker On Relationship Specialty Start Date End Date Mychal Burgess MD PCP - General 07/19/07 documented as of this encounter
--- OUTSIDE RECORDS SUMMARY | 2025-03-26 07:45 | XMS_ITS | Encounter Summary ---
Author Organization [facility] Address [address] [place] [address] Care Team Providers Care Windows Systems Admin Name Role Phone Mychal Burgess MD Primary Care Provider [phone] Encounter Details Date Type Department Care Team (Late Contact Info) Description 04/09/[address] [facility] Internal Medicine [address] [address] Mychal Burgess MD [address] [place] [address] Social History Tobacco Use Types Packs/Day Years Used Date Smoking Tobacco: Never Assessed Comments Unknown Sex and Gender Information Value Date Recorded Sex Assigned at Not on file Legal Sex Female 3:58 AM WHITE WASHER Gender Identity Not on file Sexual Orientation Not on file documented as of this encounter Last Filed Vital Signs Vital Sign Reading Time Taken Comments Blood Pressure 138/70 04/09/2004 9:45 AM WHITE WASHER Pulse - - Temperature - - Respiratory Rate - - Oxygen Saturation - - Inhaled Oxygen Concentration - - Weight 101.6 kg (224 lb) 04/09/2004 9:45 AM WHITE WASHER Height - - Body Mass Index - - documented in this encounter Plan of Treatment Upcoming Encounters Date Type Department Care Team (Late Contact Info) Description 03/29/2025 9:40 AM WHITE WASHER Office Visit [facility] Primary Care [address] [place] [address] Mychal Burgess MD [address] [place] [address] [address] [place] [address] documented as of this encounter Visit Diagnoses Not on filedocumented in this encounter Care Teams Windows Systems Admin Relationship Specialty Start Date End Date Mychal Burgess MD PCP - General 07/19/07 documented as of this encounter
--- OUTSIDE RECORDS SUMMARY | 2025-03-26 07:45 | XMS_ITS | Encounter Summary ---
Author Organization [facility] Address [address] [place] [address] Care Team Providers Care Floating Operator Name Role Phone Mychal Burgess MD Primary Care Provider + Reason for Visit * Reason Onset Date Comments Scheduling Appointments 01/16/2021 Confirmi ng mammogram appt Encounter Details Date Type Department Care Team ([facility] st Contact Info) Description 01/16/2021 Telephone [facility] [address] [place] [address] Annie Pepper RT Scheduling Appointments (Confirming mammogram appt) Social History Tobacco Use Types Packs/Day Years Used Date Smoking Tobacco: Former Smokeless Tobacco: Never Alcohol Use Standard Drinks/Week Comments Yes 0 (1 standard drink = 0.6 oz pur e alcohol) Comments No Sex and Gender Information Value Date Recorded Sex Assigned at Not on file Legal Sex Female 1:26 AM NURSING STAFF DEVELOPMENT COORDINATOR Gender Identity Not on file Sexual Orientation Not on file documented as of this encounter Plan of Treatment Not on file documented as of this encounter Visit Diagnoses Not on filedocumented in this encounter Care Teams Floating Operator Relationship Specialty Start Date End Date Mychal Burgess MD PCP - General 12/10/11 documented as of this encounter
--- OUTSIDE RECORDS SUMMARY | 2025-03-26 07:45 | XMS_ITS | Encounter Summary ---
Author Organization [facility] Address [address] [place] [address] Care Team Providers Care In Home Tutor Name Role Phone Mychal Burgess MD Primary Care Provider [phone] Encounter Details Date Type Department Care Team (Late Contact Info) Description 12/30/2006 Outpatient Historical [facility] Internal Medicine [address] [address] Mychal Burgess MD [address] [place] [address] [address] [place] [address] Social History Tobacco Use Types Packs/Day Years Used Date Smoking Tobacco: Never Assessed Comments Unknown Sex and Gender Information Value Date Recorded Sex Assigned at Not on file Legal Sex Female 3:58 AM ENGINEER CONDUCTOR Gender Identity Not on file Sexual Orientation Not on file documented as of this encounter Last Filed Vital Signs Vital Sign Reading Time Taken Comments Blood Pressure 140/70 12/30/2006 9:45 AM CDT Pulse - - Temperature - - Respiratory Rate - - Oxygen Saturation - - Inhaled Oxygen Concentration - - Weight 108.9 kg (240 lb) 12/30/2006 9:45 AM CDT Height - - Body Mass Index - - documented in this encounter Plan of Treatment Upcoming Encounters Date Type Department Care Team (Late st Contact Info) Description 03/29/2025 9:40 AM ENGINEER CONDUCTOR Office Visit [facility] Primary Care [address] [place] [address] Mychal Burgess MD [address] [place] [address] [address] [place] [address] documented as of this encounter Visit Diagnoses Not on filedocumented in this encounter Care Teams In Home Tutor Relationship Specialty Start Date End Date Mychal Burgess MD PCP - General 07/19/07 documented as of this encounter
--- OUTSIDE RECORDS SUMMARY | 2025-03-26 07:45 | XMS_ITS | Encounter Summary ---
Author Organization [facility] Address [address] [place] [address] Care Team Providers Care Filter Washer Name Role Phone Mychal Burgess MD Primary Care Provider [phone] Encounter Details Date Type Department Care Team (Late st Contact Info) Description 10/09/2004 Outpatient Historical [facility] Internal Medicine [address] [address] Mychal Burgess MD [address] [place] [address] [address] [place] [address] Social History Tobacco Use Types Packs/Day Years Used Date Smoking Tobacco: Never Assessed Comments Unknown Sex and Gender Information Value Date Recorded Sex Assigned at Not on file Legal Sex Female 3:58 AM NAPHTHALENE OPERATOR HELPER Gender Identity Not on file Sexual Orientation Not on file documented as of this encounter Last Filed Vital Signs Vital Sign Reading Time Taken Comments Blood Pressure 140/80 10/09/2004 9:30 AM CDT Pulse - - Temperature - - Respiratory Rate - - Oxygen Saturation - - Inhaled Oxygen Concentration - - Weight 103.9 kg (229 lb) 10/09/2004 9:30 AM CDT Height - - Body Mass Index - - documented in this encounter Plan of Treatment Upcoming Encounters Date Type Department Care Team (Late st Contact Info) Description 03/29/2025 9:40 AM NAPHTHALENE OPERATOR HELPER Office Visit [facility] Primary Care [address] [place] [address] Mychal Burgess MD [address] [place] [address] [address] [place] [address] documented as of this encounter Visit Diagnoses Not on filedocumented in this encounter Care Teams Filter Washer Relationship Specialty Start Date End Date Mychal Burgess MD PCP - General 07/19/07 documented as of this encounter
--- OUTSIDE RECORDS SUMMARY | 2025-03-26 07:45 | XMS_ITS | Encounter Summary ---
Author Organization [facility] Address [address] [place] [address] Care Team Providers Care Biomaterials Engineer Name Role Phone Mychal Burgess MD Primary Care Provider [phone] Encounter Details Date Type Department Care Team (Late st Contact Info) Description 10/07/2006 Orders Only [facility] Internal Medicine [address] [address] Mychal Burgess MD [address] [place] [address] Social History Tobacco Use Types Packs/Day Years Used Date Smoking Tobacco: Never Assessed Comments Unknown Sex and Gender Information Value Date Recorded Sex Assigned at Not on file Legal Sex Female 3:58 AM DISPUTE RESOLUTION SPECIALIST Gender Identity Not on file Sexual Orientation Not on file documented as of this encounter Progress Notes * Mychal Burgess MD - 08/30/2007 6:08 PM CDT WEIGHT: 242lbs BLOOD PRESSURE: 140/80 Right Arm Sitting NURSE NAME: Tiffany Herrera R CHIEF COMPLAINT Patient here for follow up hyperlipidemia, hypertension. HISTORY: HISTORY: 272.4-HYPERLIPIDEMIA The patient is tolerating the medications. 311-DEPRESSION The depression remains stable. 401.9-HYPERTENSION, UNSPECIFIED The patient denies chest pain, shortness of breath, dyspnea on exertion, pedal edema, or headache. 782.3-EDEMA The edema has worsened. The patient denies shortness of breath, increased swelling of the feet, and abdominal distention. 790.21-ABNORMAL FASTING BLOOD GLUCOSE lab reviewed, poor diet ROS: ENDOCRINE: No heat or cold intolerance, no excessive thirst. CARDIAC: No chest pain, palpitations, orthopnea, dyspnea on exertion, or paroxysmal nocturnal dyspnea. RESPIRATORY: No dyspnea, cough, hemoptysis or wheezing. : No frequency, urgency, hematuria or dysuria. GI: No abdominal pain, nausea, vomiting, diarrhea, constipation, melena, or hematochezia. PAST MEDICAL HISTORY: reviewed SOCIAL HISTORY: TOBACCO USE: Previously smoked. ALCOHOL: Does not give any significant history of alcohol usage. PHYSICAL EXAMINATION: CONSTITUTIONAL: GENERAL APPEARANCE: Healthy appearing patient in no distress. EARS, NOSE, MOUTH AND THROAT: EARS: Tympanic membranes shiny without retraction. Canals unremarkable. Hearing grossly normal. ORAL: Inspection of gums, lips, palate, and teeth normal. No scars, lesions, or masses. Oral mucosaunremarkable with non-inflamed posterior pharynx. NECK/THYROID: Trachea midline. No thyroid enlargement, tenderness, or mass. No supraclavicular or cervical adenopathy. RESPIRATORY: Clear to auscultation and percussion. Normal respiratory effort. CARDIOVASCULAR: CARDIAC: Regular rhythm. No murmurs, rubs, or gallops. ARTERIAL: No aortic bruits. EDEMA/VARICOSITIES OF EXTREMITIES: 1+ EDEMA BILATERALLY. GASTROINTESTINAL: ABDOMEN: Soft, non-tender, without masses. Bowel sounds active. LIVER/SPLEEN/KIDNEY: No hepatosplenomegaly, tenderness or nodularity. Kidneys not palpable. SKIN: SKIN: Warm, dry, no diaphoresis, no significant lesions, irritation, rashes or ulcers. No induration, obvious subcutaneous nodules or tightening. ASSESSMENT/PLAN: 272.4-HYPERLIPIDEMIA cont med 311-DEPRESSION pt wants try and dc med, reassess off med--will wean wellbutrin 401.9-HYPERTENSION, UNSPECIFIED cont med, discussed LAB ORDERS: 3 mo Order number: [id number] Test Ordered: COMPREHENSIVE METABOLIC PANEL & GFR 1112 Order number: [id number] Test Ordered: LIPID PANEL 1078 Order number: [id number] Test Ordered: HEMOGLOBIN A1C 1814 592.0-KIDNEY STONE enc cont fluid intake 782.3-EDEMA add med recheck lab MEDICATIONS: SPIRONOLACTONE ORAL TABLET 25 MG, 1 Every Day, 30 Dispensed, 4 Fills, status: NEW PRESCRIPTION, 10/07/2006. HYDROCHLOROTHIAZIDE ORAL TABLET 50 MG, 1 Every Day, 90 Dispensed, 3 Fills, 90 Duration/Days Supply,status: CONTINUED, 07/20/2006. REPEAT VITAL SIGNS: BLOOD PRESSURE: 135/80. Right Arm Sitting RETURN VISIT : Patient instructed to return in 3 months. Electronically Signed by: Mychal Burgess MD on Saturday, October 07, 2006 documented in this encounter Plan of Treatment Upcoming Encounters Date Type Department Care Team (Late st Contact Info) Description 03/29/2025 9:40 AM DISPUTE RESOLUTION SPECIALIST Office Visit [facility] [place] [address] Mychal Burgess MD [address] [place] [id number] documented as of this encounter Visit Diagnoses Not on filedocumented in this encounter Care Teams Biomaterials Engineer Relationship Specialty Start Date End Date Mychal Burgess MD PCP - General 07/19/07 documented as of this encounter
--- OUTSIDE RECORDS SUMMARY | 2025-03-26 07:45 | XMS_ITS | Encounter Summary ---
Author Organization [facility] Address [address] [place] [address] Care Team Providers Care Acoustical Engineer Name Role Phone Mychal Burgess MD Primary Care Provider [phone] Encounter Details Date Type Department Care Team (Late st Contact Info) Description 10/22/2005 Orders Only [facility] Internal Medicine [address] [address] Mychal Burgess MD [address] [place] [address] Social History Tobacco Use Types Packs/Day Years Used Date Smoking Tobacco: Never Assessed Comments Unknown Sex and Gender Information Value Date Recorded Sex Assigned at Not on file Legal Sex Female 3:58 AM RACK WORKER Gender Identity Not on file Sexual Orientation Not on file documented as of this encounter Progress Notes * Mychal Burgess MD - 01/19/2008 10:54 AM CDT TIME:09:07 am PATIENT`S HOME PHONE: PATIENT`S WORK PHONE: PATIENT`S INSURANCE: [employer] WHO TOOK THE CALL: Margarita Brown S GENERAL INFORMATION ALTERNATIVE PHONE NUMBER: [phone] PHARMACY NUMBER: [phone] PROBLEMS: sx for 2 wks--some wheezing and drainage down the back of throat COUGH:Patient complains of cough. green mucous SORE THROAT: Patient complains of sore throat. SECTION 1: REQUESTED ACTION browss 10/22/05 at 09:08 am: MEDICATION REQUEST: Patient wants medications and can not come in. DOCTOR`S RESPONSE: bari 10/22/05 at 09:11 am see now--needs proper eval with those sx FINAL ACTION: karan 10/22/05 at 09:34 am Spoke with patient 10/22/05 at 09:34 am. * Mychal Burgess MD - 01/19/2008 10:51 AM CDT WEIGHT: 236lbs BLOOD PRESSURE: 112/70 Right Arm Sitting TEMPERATURE: 36.22??c Oral NURSE NAME: Tiffany HerreraMelav CHIEF COMPLAINT Patient complains of sinus congestion, cough. HISTORY: 12 d cough trena, intermittent wheeze,no fever, not improved with otc meds PHYSICAL EXAMINATION: EARS, NOSE, MOUTH AND THROAT: EARS: EFFUSION PRESENT BILATERALLY, TYMPANIC MEMBRANES INFLAMED BILATERALLY. ORAL: OROPHARYNX ERYTHEMATOUS. NECK/THYROID: Trachea midline. No thyroid enlargement, tenderness, or mass. No supraclavicular or cervical adenopathy. RESPIRATORY: Clear to auscultation and percussion. Normal respiratory effort.wheeze post cough CARDIOVASCULAR: CARDIAC: Regular rhythm. No murmurs, rubs, or gallops. EDEMA/VARICOSITIES OF EXTREMITIES: No edema or varicosities. ASSESSMENT/PLAN: 401.9-HYPERTENSION, UNSPECIFIED cont med 466.0-BRONCHITIS ACUTE MEDICATIONS: ZITHROMAX Z-AVELINO ORAL TABLET 250 MG, DIRECTED, 1 Dispensed, status: NEW PRESCRIPTION, 10/22/2005. MEDROL (AVELINO) ORAL TABLET 4 MG, DIRECTED, 1 Dispensed, status: NEW PRESCRIPTION, 10/22/2005. ALBUTEROL INHALATION AEROSOL SOLUTION 90 MCG/ACT, 2 Four Times A Day, As Needed, 1 Dispensed, status: NEW PRESCRIPTION, 10/22/2005. RETURN VISIT : Instructed to call if not improving. Electronically Signed by: Mychal Burgess MD on Saturday, October 22, 2005 documented in this encounter Plan of Treatment Upcoming Encounters Date Type Department Care Team (Late st Contact Info) Description 03/29/2025 9:40 AM RACK WORKER Office Visit [facility] Primary Care [address] [place] [address] Mychal Burgess MD [address] [place] [address] [address] [place] [address] documented as of this encounter Visit Diagnoses Not on filedocumented in this encounter Care Teams Acoustical Engineer Relationship Specialty Start Date End Date Mychal Burgess MD PCP - General 07/19/07 documented as of this encounter
--- OUTSIDE RECORDS SUMMARY | 2025-03-26 07:45 | XMS_ITS | Encounter Summary ---
Author Organization [facility] Address [address] [place] [address] Care Team Providers Care Certified Home Health Aide Name Role Phone Mychal Burgess MD Primary Care Provider [phone] Encounter Details Date Type Department Care Team (Late Contact Info) Description 07/20/2006 Orders Only [facility] Internal Medicine [address] [address] Mychal Burgess MD [address] [place] [address] Social History Tobacco Use Types Packs/Day Years Used Date Smoking Tobacco: Never Assessed Comments Unknown Sex and Gender Information Value Date Recorded Sex Assigned at Not on file Legal Sex Female 3:58 AM SCORER SINGLE Gender Identity Not on file Sexual Orientation Not on file documented as of this encounter Plan of Treatment Upcoming Encounters Date Type Department Care Team (Late st Contact Info) Description 03/29/2025 9:40 AM SCORER SINGLE Office Visit [facility] Primary Care [address] [place] [address] Mychal Burgess MD [address] [place] [address] [address] [place] [address] documented as of this encounter Visit Diagnoses Not on filedocumented in this encounter Care Teams Certified Home Health Aide Relationship Specialty Start Date End Date Mychal Burgess MD PCP - General 07/19/07 documented as of this encounter
--- OUTSIDE RECORDS SUMMARY | 2025-03-26 07:45 | XMS_ITS | Encounter Summary ---
Author Organization [facility] Address [address] [place] [address] Care Team Providers Care General Ledger Accountant Name Role Phone Mychal Burgess MD Primary Care Provider [phone] Encounter Details Date Type Department Care Team (Late Contact Info) Description 04/26/2005 Orders Only [facility] Internal Medicine [address] [address] Mychal Burgess MD [address] [place] [address] Social History Tobacco Use Types Packs/Day Years Used Date Smoking Tobacco: Never Assessed Comments Unknown Sex and Gender Information Value Date Recorded Sex Assigned at Not on file Legal Sex Female 3:58 AM INDUSTRIAL ROOFER Gender Identity Not on file Sexual Orientation Not on file documented as of this encounter Plan of Treatment Upcoming Encounters Date Type Department Care Team (Late st Contact Info) Description 03/29/2025 9:40 AM INDUSTRIAL ROOFER Office Visit [facility] Primary Care [address] [place] [address] Mychal Burgess MD [address] [place] [address] [address] [place] [address] documented as of this encounter Visit Diagnoses Not on filedocumented in this encounter Care Teams General Ledger Accountant Relationship Specialty Start Date End Date Mychal Burgess MD PCP - General 07/19/07 documented as of this encounter
--- OUTSIDE RECORDS SUMMARY | 2025-03-26 07:45 | XMS_ITS | Encounter Summary ---
Author Organization [facility] Address [address] [place] [address] Care Team Providers Care Assessment Coordinator Name Role Phone Mychal Burgess MD Primary Care Provider [phone] Encounter Details Date Type Department Care Team (Late st Contact Info) Description 02/28/2006 Orders Only [facility] Internal Medicine [address] [address] Mychal Burgess MD [address] [place] [address] Social History Tobacco Use Types Packs/Day Years Used Date Smoking Tobacco: Never Assessed Comments Unknown Sex and Gender Information Value Date Recorded Sex Assigned at Not on file Legal Sex Female 3:58 AM FORGE TENDER Gender Identity Not on file Sexual Orientation Not on file documented as of this encounter Progress Notes * Mychal Burgess MD - 01/24/2008 12:44 AM CDT TIME:03:31 pm PATIENT`S HOME PHONE: PATIENT`S WORK PHONE: PATIENT`S INSURANCE: [employer] WHO TOOK THE CALL: Purvi Mcgregor L GENERAL INFORMATION WHO CALLED: Pharmacy called. PHARMACY NUMBER: [phone] SECTION 1: REQUESTED ACTION licasl 02/28/06 at 03:31 pm: MEDICATION REQUEST: Patient requests a refill. gen Wellbutrin XL #30 LF 01/31/06 gen Zocor 40 mg. #30 LF 01/31/06 DOCTOR`S RESPONSE: bari 02/28/06 at 03:51 pm MEDICATIONS: Call in to Pharmacy WELLBUTRIN SR ORAL TABLET 12 HR 150 MG, 1 Every Day, 30 Dispensed, 11 Fills, status: CONTINUED, 02/28/2006. ZOCOR ORAL TABLET 40 MG, 1 Every Day, 90 Dispensed, 3 Fills, 90 Duration/Days Supply, status: NEW PRESCRIPTION, 10/09/2004. FINAL ACTION: cole 02/28/06 at 03:56 pm Called pharmacy at 02/28/06 at 03:56 pm. called in with Markusd Electronically Signed by: Nano Booth on Tuesday, February 28, 2006 documented in this encounter Plan of Treatment Upcoming Encounters Date Type Department Care Team (Late st Contact Info) Description 03/29/2025 9:40 AM FORGE TENDER Office Visit [facility] [place] [address] [place] [address] Mychal Burgess MD [address] [place] [address] [address] [place] [address] documented as of this encounter Visit Diagnoses Not on filedocumented in this encounter Care Teams Assessment Coordinator Relationship Specialty Start Date End Date Mychal Burgess MD PCP - General 07/19/07 documented as of this encounter
--- OUTSIDE RECORDS SUMMARY | 2025-03-26 07:45 | XMS_ITS | Encounter Summary ---
Author Organization [facility] Address [address] [place] [address] Care Team Providers Care Sign Manufacturer Name Role Phone Mychal Burgess MD Primary Care Provider [phone] Encounter Details Date Type Department Care Team (Late Contact Info) Description 12/31/2005 Outpatient Historical [facility] Internal Medicine [address] [address] Mychal Burgess MD [address] [place] [address] [address] [place] [address] Social History Tobacco Use Types Packs/Day Years Used Date Smoking Tobacco: Never Assessed Comments Unknown Sex and Gender Information Value Date Recorded Sex Assigned at Not on file Legal Sex Female 3:58 AM EVENT COORDINATOR Gender Identity Not on file Sexual Orientation Not on file documented as of this encounter Last Filed Vital Signs Vital Sign Reading Time Taken Comments Blood Pressure 130/70 12/31/2005 9:00 AM CDT Pulse - - Temperature - - Respiratory Rate - - Oxygen Saturation - - Inhaled Oxygen Concentration - - Weight 105.7 kg (233 lb) 12/31/2005 9:00 AM CDT Height - - Body Mass Index - - documented in this encounter Plan of Treatment Upcoming Encounters Date Type Department Care Team (Late st Contact Info) Description 03/29/2025 9:40 AM EVENT COORDINATOR Office Visit [facility] Primary Care [address] [place] [address] Mychal Burgess MD [address] [place] [address] [address] [place] [address] documented as of this encounter Visit Diagnoses Not on filedocumented in this encounter Care Teams Sign Manufacturer Relationship Specialty Start Date End Date Mychal Burgess MD PCP - General 07/19/07 documented as of this encounter
--- OUTSIDE RECORDS SUMMARY | 2025-03-26 07:45 | XMS_ITS | Encounter Summary ---
Author Organization [facility] Address [address] [place] [address] Care Team Providers Care Building Construction Supervisor Name Role Phone Mychal Burgess MD Primary Care Provider [phone] Encounter Details Date Type Department Care Team (Late st Contact Info) Description 08/06/2005 Outpatient Historical [facility] Internal Medicine [address] [address] Mychal Burgess MD [address] [place] [address] [address] [place] [address] Social History Tobacco Use Types Packs/Day Years Used Date Smoking Tobacco: Never Assessed Comments Unknown Sex and Gender Information Value Date Recorded Sex Assigned at Not on file Legal Sex Female 3:58 AM WAITER/WAITRESS COCKTAIL LOUNGE Gender Identity Not on file Sexual Orientation Not on file documented as of this encounter Last Filed Vital Signs Vital Sign Reading Time Taken Comments Blood Pressure 130/70 08/06/2005 9:45 AM CDT Pulse - - Temperature - - Respiratory Rate - - Oxygen Saturation - - Inhaled Oxygen Concentration - - Weight 106.6 kg (235 lb) 08/06/2005 9:45 AM CDT Height - - Body Mass Index - - documented in this encounter Plan of Treatment Upcoming Encounters Date Type Department Care Team (Late st Contact Info) Description 03/29/2025 9:40 AM WAITER/WAITRESS COCKTAIL LOUNGE Office Visit [facility] Primary Care [address] [place] [address] Mychal Burgess MD [address] [place] [address] [address] [place] [address] documented as of this encounter Visit Diagnoses Not on filedocumented in this encounter Care Teams Building Construction Supervisor Relationship Specialty Start Date End Date Mychal Burgess MD PCP - General 07/19/07 documented as of this encounter
--- OUTSIDE RECORDS SUMMARY | 2025-03-26 07:45 | XMS_ITS | Encounter Summary ---
Author Organization [facility] Address [address] [place] [address] Care Team Providers Care Spanish Tutor Name Role Phone Mychal Burgess MD Primary Care Provider [phone] Encounter Details Date Type Department Care Team (Late Contact Info) Description 10/07/2006 Outpatient Historical [facility] Internal Medicine [address] [address] Mychal Burgess MD [address] [place] [address] [address] [place] [address] Social History Tobacco Use Types Packs/Day Years Used Date Smoking Tobacco: Never Assessed Comments Unknown Sex and Gender Information Value Date Recorded Sex Assigned at Not on file Legal Sex Female 3:58 AM MOLDER SWEEP Gender Identity Not on file Sexual Orientation Not on file documented as of this encounter Last Filed Vital Signs Vital Sign Reading Time Taken Comments Blood Pressure 135/80 10/07/2006 1:15 PM CDT Pulse - - Temperature - - Respiratory Rate - - Oxygen Saturation - - Inhaled Oxygen Concentration - - Weight 109.8 kg (242 lb) 10/07/2006 1:15 PM CDT Height - - Body Mass Index - - documented in this encounter Plan of Treatment Upcoming Encounters Date Type Department Care Team (Late st Contact Info) Description 03/29/2025 9:40 AM MOLDER SWEEP Office Visit [facility] [address] [place] [address] Mychal Burgess MD [address] [place] [address] [address] [place] [address] documented as of this encounter Visit Diagnoses Not on filedocumented in this encounter Care Teams Spanish Tutor Relationship Specialty Start Date End Date Mychal Burgess MD PCP - General 07/19/07 documented as of this encounter
--- OUTSIDE RECORDS SUMMARY | 2025-03-26 07:45 | XMS_ITS | Encounter Summary ---
Author Organization [facility] Address [address] [place] [address] Care Team Providers Care Fuel Storage Technician Name Role Phone Mychal Burgess MD Primary Care Provider + Reason for Visit * Reason Onset Date Comments Scheduling Appointments 02/11/2021 Confirmi ng mammogram appt Encounter Details Date Type Department Care Team ([facility] st Contact Info) Description 02/11/2021 Telephone [facility] [address] [place] [address] Annie Pepper RT Scheduling Appointments (Confirming mammogram appt) Social History Tobacco Use Types Packs/Day Years Used Date Smoking Tobacco: Former Smokeless Tobacco: Never Alcohol Use Standard Drinks/Week Comments Yes 0 (1 standard drink = 0.6 oz pur e alcohol) Comments No Sex and Gender Information Value Date Recorded Sex Assigned at Not on file Legal Sex Female 1:26 AM LINUX SYSTEMS ENGINEER Gender Identity Not on file Sexual Orientation Not on file documented as of this encounter Plan of Treatment Not on file documented as of this encounter Visit Diagnoses Not on filedocumented in this encounter Care Teams Fuel Storage Technician Relationship Specialty Start Date End Date Mychal Burgess MD PCP - General 12/10/11 documented as of this encounter
--- OUTSIDE RECORDS SUMMARY | 2025-03-26 07:45 | XMS_ITS | Clinical Summary ---
Author Organization [facility] Address [address] [place] [address] Care Team Providers Care Microbiology Instructor Name Role Phone Mychal Burgess MD Primary Care Provider [phone] Allergies No known active allergies Medications Aspirin, Buffered 81 mg Tablet Take 1 Tab by mouth daily. Active CALCIUM CARB/VIT D3/MINERALS (CALCIUM CARBONATE-VIT D3-MIN) 1,200 mgcalcium -1,000 unit Tablet, Chewable Take 1 Tab by mouth daily. Active cholecalcifero l, Vitamin D3, (VITAMIN D3) 25 mcg (1,000 unit) Capsule Take 1 Cap by mouth daily. Active fluticasone (FLONASE) 50 mcg/spray [place], Suspension Administer 2 Sprays in each nostril daily. 16 Gram 3 05/12/19 16 Active albuterol HFA 90 mcg inhaler Take 2 Puffs by inhalation every 6 hours as needed for Shortness of Breath. 6.7 Gram 4 01/11/20 17 Active furosemide (LASIX) 20 mg tablet Take 1 Tablet (20 mg) by mouth 1 time daily as needed (edema). 30 Tablet 4 10/25/19 18 Active lancetsIndicat ions:Controlle d type 2 diabetes mellitus without complication, without long-term current use of insulin ([facility]) Qd check one touch ultra E11.9 100 Each 3 09/25/19 21 Active triamcinolone acetonide (KENALOG) 0.1 % Cream Apply to affected area 2 times daily. 80 Gram 2 05/26/19 22 Active fluocinonide (LIDEX) 0.05 % Solution 2-3 drops affected ear daily PRN itching 20 mL 06/09/19 24 Active amLODIPine (NORVASC) 2.5 mg tablet Take 1 Tablet (2.5 mg) by mouth daily. 90 Tablet 3 11/02/19 24 Active amLODIPine (NORVASC) 5 mg tablet Take 1 Tablet (5 mg) by mouth daily. 100 Tablet 3 01/09/20 24 Active blood sugar diagnostic StripIndicatio ns:Controlled type 2 diabetes mellitus without complication, without long-term current use of insulin ([facility]) One touch ultra mini, Qd check E11.9 100 Strip 3 02/16/20 24 Active pravastatin (PRAVACHOL) 20 mg tablet TAKE 1 TABLET BY MOUTH EVERYDAY AT BEDTIME 90 Tablet 4 03/27/20 24 Active losartan (COZAAR) 100 mg tablet TAKE 1 TABLET BY MOUTH EVERY DAY 90 Tablet 3 05/14/19 25 Active semaglutide (Ozempic) 0.25 mg or 0.5 mg (2 mg/3 mL) Pen Injector Inject 0.5 mg by subcutaneous injection every 7 days. 9 mL 3 05/23/19 25 Active dicyclomine (BENTYL) 20 mg tablet TAKE 1 TABLET BY MOUTH FOUR TIMES A DAY 360 Tablet 3 06/06/19 25 Active levothyroxine 137 mcg tablet TAKE 1 TABLET (137 MCG) BY MOUTH DAILY IN THE MORNING. 90 Tablet 3 09/05/19 25 Active hydrALAZINE (APRESOLINE) 10 mg tablet Take 1 Tablet (10 mg) by mouth 3 times daily. We increased dose to tid 270 Tablet 1 09/14/19 25 Active escitalopram oxalate (LEXAPRO) 20 mg tablet TAKE 1 TABLET BY MOUTH EVERY DAY 90 Tablet 3 10/19/19 25 Active methylPREDNISo lone (MEDROL DOSPACK) 4 mg Tablets, Dose Pack As directed 21 Tablet 11/08/19 25 Active busPIRone (BUSPAR) 10 mg tablet TAKE 1 TABLET BY MOUTH TWICE A DAY 180 Tablet 1 11/22/19 25 Active metFORMIN (GLUCOPHAGE XR) 500 mg Extended Release 24 hour tablet TAKE 2 TABLETS (1000 MG) BY MOUTH DAILY WITH BREAKFAST 180 Tablet 2 01/12/20 25 Active metoprolol succinate (TOPROL XL) 200 mg Extended Release 24 hour tabletIndicati ons:Hypertensi on, essential TAKE 1/2 TABLET BY MOUTH DAILY 45 Tablet 3 01/13/20 25 Active hydroCHLOROthi azide (MICROZIDE) 12.5 mg capsule TAKE 1 CAPSULE BY MOUTH EVERY DAY 90 Capsule 3 03/23/20 25 Active hydroCHLOROthi azide (MICROZIDE) 12.5 mg capsule TAKE 1 CAPSULE BY MOUTH EVERY DAY 90 Capsule 3 03/27/20 24 025 Discontinued Active Problems Patient Care Coordination No te Formatting of this note migh t be different from the original. [id number] 11/02/23 Problem Noted Date Diagnosed Date Leukocytosis 03/22/2023 Diabetes mellitus type II, c ontrolled, with no complications 03/04/2015 Mixed hyperlipidemia 03/04/2015 IBS (irritable bowel syndrome) 06/25/2014 Osteopenia 02/19/2013 Hypothyroidism, postradioiodine therapy 02/25/20 Major depression 07/21/2010 Carpal tunnel syndrome 10/09/2004 Calculus of kidney 04/09/2004 Essential hypertension 11/29/2003 Irritable bowel syndrome 11/29/2003 Edema 11/29/2003 Resolved Problems Problem Noted Date Diagnosed Date Resolved Date Severe obesity (BMI 35.0-39. 9) with comorbidity 10/23/2015 04/13/2019 Type 2 diabetes mellitus not at goal 02/25/2012 03/04/2015 Hyperthyroidism, subclinical 01/06/2011 03/22/2011 Primary localized osteoarthr osis, shoulder region 07/08/2006 08/04/2007 Impaired fasting glucose 07/08/2006 Acute sinusitis, unspecified 01/13/2006 08/04/2007 Acute bronchitis 10/22/2005 08/04/2007 Respiratory abnormality, unspecified 08/06/2005 08/04/2007 Unspecified sleep apnea 08/06/200502/09 Depressive disorder, not elsewhere classified 11/29/19 04 07/21/2010 Hyperlipidemia 11/29/2003 03/04/2015 Encounters Date Type Department Care Team Description 03/25/2025 Telephone [facility] [address] [place] [address] Mychal Burgess MD Needs Orders Written 03/23/2025 Refill [facility] [address] [place] [address] Mychal Burgess MD 03/19/2025 External Device Data STL ABSTRACTION Provider, Abstract 03/05/2025 External Device Data STL ABSTRACTION Provider, Abstract 02/26/2025 External Device Data STL ABSTRACTION Provider, Abstract 01/12/2025 [facility] [address] [place] [address] Mychal Burgess MD Hypertension, essential 01/11/2025 [facility] [address] [place] [address] Mychal Burgess MD from Last 3 Months Immunizations Immunization Administration Dates Next Due (ADACEL/BOOSTRIX)(10 YR UP) TDAP VACCINE, 0.5ML, IM 12/21/2023,02/27/2014 (AREXVY)(60 YR UP) RSV, GAMALIEL MBINANT, PROTEIN SUBUNIT RSVPREF, ADJUVANT RECONSTITUTED, 0.5 ML, PF 01/19/2023,12/20/2022 (PFIZER JACOB)(12 YR UP PRIMA RY SERIES) COVID-19 VACCINE - EMERGENCY USE AUTHORIZATION, MRNA, JACOB(PF) 30 MCG/0.3 ML IM SUSP 12/21/2023,03/24/2023 (PFIZER)(12 YR UP) COVID-19 VACCINE - EMERGENCY USE AUTHORIZATION, MRNA, [id number](PF) 30 MCG/0.3 ML IM SUSP 01/22/2021,06/26/2020,06/05/2020 (PNEUMOVAX 23)(50 YRS UP) PN EUMOCOCCAL POLYSACCHARIDE (PPV23) 0.5 ML, IM 08/01/2018,11/29/2003,01/09/1999 (PREVNAR 13)(6 WKS UP) PNEUM OCOCCAL CONJUGATE (PCV13) 0.5 ML, IM 07/30/2013 (PREVNAR 20)(6 WKS UP) PNEUM OCOCCAL CONJUGATE VACCINE 20-VALENT (PCV20), POLYSACCHARIDE [id number] CONJUGATE, ADJUVANT 0.5 ML (PF) IM 11/02/2023 (Pfizer Bivalent)(5-11 Yrs) COVID-19 Vaccine - Emergency Use Authorization, MRNA, Jacob(Pf) 10 Mcg/0.2 Ml Im SuspP 10/08/2021 (SHINGRIX)(50 YRS UP) ZOSTER VACCINE RECOMBINANT, 0.5 ML, IM 11/09/2017,08/01/2017 (TDVAX)(7 YRS UP) TETANUS AN D DIPHTHERIA TOXOIDS, ADSORBED (2 LF OF TETANUS TOXOID AND 2 LF OF DIPHTHERIA TOXOID), 0.5ML (PF), IM 11/29/2003 INFLUENZA VACCINE HIGH DOSE QUADRIVALENT 65 YR UP PF IM 01/19/2023,01/21/2021 INFLUENZA VACCINE HIGH DOSE TRIVALENT SPLIT VIRUS, (65 YR UP), 0.5ML (PF), IM 12/21/2023 INFLUENZA VACCINE QUADRIVALE NT 6 MOS UP PF IM 01/01/2020 Influenza Seasonal Unspecifi ed Formulation IM 01/19/2023,01/10/2019,01/17/2015,01/25,01/19/2013,01/21/2012,02/17/2011 ,01/30/2010,01/19/2008 Influenza Vaccine High Dose 65+ Yrs IM 0 12/21/2021,01/11/2018,03/25/2017,01/26 Influenza Vaccine Split 3+ Yrs IM 02/09/2007,,02/09/2003 Zoster Vaccine Live SQ 07/30/2013 Family History Medical History Relation Name Comments Hypertension Brother Heart Disease Father Respiratory Disease Mother Diabetes Sister 1 Hypertension Sister 1 Other Sister 1 Cancer Sister 2 glioblastoma Relation Name Status Comments Brother Father Mother Sister 1 Sister 2 Social History Tobacco Use Types Packs/Day Years Used Date Smoking Tobacco: Former Cigarettes 1 35 0 04/11/1966 - 04/11/2001 Passive Smoke Exposure: Past Smokeless Tobacco: Never Tobacco Cessation:Counseling Given: No Alcohol Use Standard Drinks/Week Comments No 0 [...] on file Legal Sex Female 3:58 AM SURGICAL APPLIANCES SALESPERSON Gender Identity Not on file Sexual Orientation Not on file Last Filed Vital Signs Vital Sign Reading Time Taken Comments Blood Pressure 137/67 09/12/2024 9:03 AM CDT Pulse 72 09/12/2024 9:03 AM CDT Temperature 37.2 C (99 F) 01/05/2023 8:29 AM CDT Respiratory Rate 16 06/09/2023 2:11 PM SURGICAL APPLIANCES SALESPERSON Oxygen Saturation 98% 09/12/2024 9:03 AM CDT Inhaled Oxygen Concentration - - Weight 86.2 kg (190 lb) 09/12/2024 9:03 AM CDT Height 167.6 cm (5' 6) 09/12/2024 9:03 AM CDT Body Mass Index 30.67 09/12/2024 9:03 AM CDT Plan of Treatment Upcoming Encounters Date Type Department Care Team (Late st Contact Info) Description 03/29/2025 9:40 AM SURGICAL APPLIANCES SALESPERSON Office Visit [facility] [place] [address] Mychal Burgess MD [address] [place] [address] Health Maintenance Due Date Last Done Comments DIABETES ANNUAL FOOT EXAM 11/01/20242023, 11/02/2023, 05/26/2021, Additional history exists Traditional Medicare (ACO) A nnual Wellness Visit 11/02/2024 11/02/2023, 03/22/2023, 05/26/2021, Additional history exists INFLUENZA VACCINE (#1) 2024 , 01/19/2023, 01/19/2023, Additional history exists COVID-19 Vaccine (2024-2 6 season) 2024 12/21/2023, 03/24/2023, 10/08/2021, Additional history exists DIABETES MICROALBUMIN ANNUAL SCREEN 02/22/2025 02/23/2024, 11/01/2023, 09/21/2022, Additional history exists DIABETES HBA1C Q 6 MONTHS 03/12/20252024, 09/10/2024, 02/23/2024, Additional history exists DIABETES ANNUAL RETINAL EXAM 07/17/202511/2024, 07/17/2024, 07/13/2023, Additional history exists DIABETES: A1C (Auto Order) 09/10/202509/10, 09/10/2024, 02/23/2024, Additional history exists LDL CHOLESTEROL ANNUAL 09/10/2025 5, 02/23/2024, 11/01/2023, Additional history exists OSTEOPOROSIS SCREENING 03/29/2028 3, 03/29/2023, 06/02/2020, Additional history exists DTAP/TDAP/TD VACCINES (3 - T d or Tdap) 12/20/2033 12/21/2023, 02/27/2014, 11/29/2003 ZOSTER VACCINE Completed 11/09/2017, 07/11, 07/30/2013 COLORECTAL SCREENING Discontinued 01/25/2020, 01/25/2020, 01/25/2020, Additional history exists Colorectal Cancer Screening Discontinued RSV VACCINE (60+ or ) Completed 01/19/2023, 12/20/2022 PNEUMOCOCCAL VACCINE 50+ YEARS Completed 0 11/02/2023, 08/01/2018, 07/30/2013, Additional history exists FIT-DNA Q 3 years Discontinued FIT/FOBT Q 1 year Discontinued Flex Sig/CT Colonography Q 5 years Discontinued Procedures Procedure Name Priority Date/Time Associated Diagnosis Comments LIPID PANEL Routine 09/10/2024 7:57 AM CDT Other hyperlipidemia HEMOGLOBIN A1C Routine 09/10/2024 7:57 AM CDT Type 2 diabetes mellitus with stage 3 chronic kidney disease, without long-term current use of insulin, unspecified whether stage 3a or 3b CKD (CMS/HCC) HM DIABETES EYE EXAM Routine 07/17/2024 8:21 AM CDT MICROALBUMIN/CREATI NINE RATIO, RANDOM UR Routine 02/23/2024 9:55 AM SURGICAL APPLIANCES SALESPERSON XR DEXA BONE DENSITY AXIAL 1 OR MORE SITES Routine 06/02/2020 Menopause COLONOSCOPY REPORT Routine 01/25/2020 from Last 3 Months or Most Recently Relevant to Health Maintenance Results * (ABNORMAL) HEMOGLOBIN A1C (09/10/2024 7:57 AM CDT) HEMOGLOBIN A1C 6.8(H) <5.7 % of total Hgb [facility] Comment: For someone without known diabetes, a hemoglobin A1c value of 6.5% or greater indicates that they may have diabetes and this should be confirmed with a follow-up test. For someone with known diabetes, a value <7% indicates that their diabetes is well controlled and a value greater than or equal to 7% indicates suboptimal control. A1c targets should be individualized based on duration of diabetes, age, comorbid conditions, and other considerations. Currently, no consensus exists regarding use of hemoglobin A1c for diagnosis of diabetes for children. ESTIMATED AVERAGE GLUCOSE (MG/DL) 148 mg/dL [facility] ESTIMATED AVERAGE GLUCOSE (MMOL/L) 8.2 mmol/L [facility] Comment: FASTING:YES FASTING: YES Test Performed at: [facility] [place] [address] [place] [address] Priyanka Haddad Vo Blood 09/10/2024 7:57 AM CDT 09/10/2024 7:58 AM CDT us Mychal Burgess MD CHEMISTRY ORDERABLES Final Re sult [facility] [phone] [facility] [place] [address] [address] * (ABNORMAL) LIPID PANEL (09/10/2024 7:57 AM CDT) CHOLESTEROL 129 <200 mg/dL [facility] HDL 39(L) > OR = 50 mg/dL [facility] TRIGLYCERIDE 140 <150 mg/dL [facility] LDL CALCULATED 68 mg/dL (calc) [facility] Comment: Reference range: <100 Desirable range <100 mg/dL for primary prevention; <70 mg/dL for patients with CHD or diabetic patients with > or = 2 CHD risk factors. LDL-C is now calculated using the Valentín calculation, which is a validated novel method providing better accuracy than the Friedewald equation in the estimation of LDL-C. Renaldo SS et al. JEAN MARIE. 2013;310(19): 0756-3857 (http://education.[employer]/faq/QKW448) CHOL/HDL RATIO 3.3 <5.0 (calc) [facility] NON-HDL CHOLESTEROL 90 <130 mg/dL (calc) [facility] Comment: For patients with diabetes plus 1 major ASCVD risk factor, treating to a non-HDL-C goal of <100 mg/dL (LDL-C of <70 mg/dL) is considered a therapeutic option. Test Performed at: [facility] [address] [place] [address] Priyanka Wu MD Blood 09/10/2024 7:57 AM CDT 09/10/2024 7:58 AM CDT us Mychal Burgess MD CHEMISTRY ORDERABLES Final Re sult Performing Organization Address City/[facility]/ZIP Co de Phone Number [facility] [phone] [facility] [address] [place] [address] * DIABETES EYE EXAM (07/17/2024 8:21 AM CDT) us Abstract Provider HEALTH MAINTENANCE Edited Resu lt - Final [facility] CLIA# [id number] [facility] [address] [place] [address] * MICROALBUMIN/CREATININE RATIO, RANDOM UR (02/23/2024 9:55 AM SURGICAL APPLIANCES SALESPERSON) Creatinine, Urine 150 20 - 275 mg/dL [facility] MICROALBUMIN, URINE 4.1 See Note: mg/dL [facility] Comment: Reference Range: Reference Range Not established MICROALBUMIN/CREAT RATIO, UR 27 <30 mg/g creat [facility] Comment: The ADA defines abnormalities in albumin excretion as follows: Albuminuria Category Result (mg/g creatinine) Normal to Mildly increased <30 Moderately increased 30-299 Severely increased > OR = 300 The ADA recommends that at least two of three specimens collected within a 3-6 month period be abnormal before considering a patient to be within a diagnostic category. FASTING:YES FASTING: YES Test Performed at: [facility] [address] Priyanka Wu MD 02/23/2024 9:55 AM SURGICAL APPLIANCES SALESPERSON 02/23/2024 9:56 AM SURGICAL APPLIANCES SALESPERSON Mychal Burgess MD URINE ORDERABLES Final Result Performing Organization Address [facility] Co de Phone Number [facility] [phone] [facility] [address] [place] [address] * XR DEXA BONE DENSITY AXIAL 1 OR MORE SITES (06/02/2020) Anatomical Region Laterality Modality Other Mychal Burgess MD DIAGNOSTIC IMAGING ORDERABLES Final Result * COLONOSCOPY REPORT (01/25/2020) Abstract Provider GI PROCEDURE ORDERABLES Edited Result - Final Performing Organization Address City/[facility] Co de Phone Number EXTERNAL LAB from Last 3 Months or Most Recently Relevant to Health Maintenance Insurance MEDICARE PART A AND B BS SUPP Care Teams Microbiology Instructor Relationship Specialty Start Date End Date Mychal Burgess MD PCP - General 07/19/07
--- OUTSIDE RECORDS SUMMARY | 2025-03-26 07:45 | XMS_ITS | Encounter Summary ---
Author Organization [facility] Address [address] [place] [address] Care Team Providers Care Rehabilitation Services Coordinator Name Role Phone Mychal Burgess MD Primary Care Provider [phone] Encounter Details Date Type Department Care Team (Late Contact Info) Description 09/22/2006 Orders Only [facility] ([facility]3] Internal Medicine [address] [address] Mychal Burgess MD [address] [place] [address] Social History Tobacco Use Types Packs/Day Years Used Date Smoking Tobacco: Never Assessed Comments Unknown Sex and Gender Information Value Date Recorded Sex Assigned at Not on file Legal Sex Female 3:[address] SUPERVISOR OF ENGINES Gender Identity Not on file Sexual Orientation Not on file documented as of this encounter Plan of Treatment Upcoming Encounters Date Type Department Care Team (Late st Contact Info) Description 03/29/2025 9:[address] SUPERVISOR OF ENGINES Office Visit [facility] ([facility]3] Primary Care [address] [place] [address] Mychal Burgess MD [address] [place] [address] [address] [place] [address] documented as of this encounter Visit Diagnoses Not on filedocumented in this encounter Care Teams Rehabilitation Services Coordinator Relationship Specialty Start Date End Date Mychal Burgess MD PCP - General 07/19/07 documented as of this encounter
--- OUTSIDE RECORDS SUMMARY | 2025-03-26 07:45 | XMS_ITS | Encounter Summary ---
Author Organization [facility] Address [address] [place] [address] Care Team Providers Care Systems Checkout Mechanic Name Role Phone Mychal Burgess MD Primary Care Provider [phone] Encounter Details Date Type Department Care Team (Late Contact Info) Description 03/31/2007 Outpatient Historical [facility] Internal Medicine [address] [address] Mychal Burgess MD [address] [place] [address] Social History Tobacco Use Types Packs/Day Years Used Date Smoking Tobacco: Never Assessed Comments Unknown Sex and Gender Information Value Date Recorded Sex Assigned at Not on file Legal Sex Female 3:58 AM BRINELL TESTER Gender Identity Not on file Sexual Orientation Not on file documented as of this encounter Plan of Treatment Upcoming Encounters Date Type Department Care Team (Late st Contact Info) Description 03/29/2025 9:40 AM BRINELL TESTER Office Visit [facility] Primary Care [address] [place] [address] Mychal Burgess MD [address] [place] [address] [address] [place] [address] documented as of this encounter Visit Diagnoses Not on filedocumented in this encounter Care Teams Systems Checkout Mechanic Relationship Specialty Start Date End Date Mychal Burgess MD PCP - General 07/19/07 documented as of this encounter
--- OUTSIDE RECORDS SUMMARY | 2025-03-26 07:45 | XMS_ITS | Encounter Summary ---
Author Organization [facility] Address [address] [place] [address] Care Team Providers Care Lab Technologist Name Role Phone Mychal Burgess MD Primary Care Provider [phone] Encounter Details Date Type Department Care Team (Late Contact Info) Description 03/31/2007 Outpatient Historical [facility] Internal Medicine [address] [address] Mychal Burgess MD [address] [place] [address] Social History Tobacco Use Types Packs/Day Years Used Date Smoking Tobacco: Never Assessed Comments Unknown Sex and Gender Information Value Date Recorded Sex Assigned at Not on file Legal Sex Female 3:58 AM SHAREPOINT DEVELOPER Gender Identity Not on file Sexual Orientation Not on file documented as of this encounter Plan of Treatment Upcoming Encounters Date Type Department Care Team (Late st Contact Info) Description 03/29/2025 9:40 AM SHAREPOINT DEVELOPER Office Visit [facility] Primary Care [address] [place] [address] Mychal Burgess MD [address] [place] [address] [address] [place] [address] documented as of this encounter Visit Diagnoses Not on filedocumented in this encounter Care Teams Lab Technologist Relationship Specialty Start Date End Date Mychal Burgess MD PCP - General 07/19/07 documented as of this encounter
--- OUTSIDE RECORDS SUMMARY | 2025-03-26 07:45 | XMS_ITS | Encounter Summary ---
Author Organization [facility] Address [address] [place] [address] Care Team Providers Care Production Trainer Name Role Phone Mychal Burgess MD Primary Care Provider [phone] Encounter Details Date Type Department Care Team (Late st Contact Info) Description 01/03/[address] [facility] Internal Medicine [address] [address] Mychal Burgess MD [address] [place] [address] [address] [place] [address] Social History Tobacco Use Types Packs/Day Years Used Date Smoking Tobacco: Never Assessed Comments Unknown Sex and Gender Information Value Date Recorded Sex Assigned at Not on file Legal Sex Female 3:58 AM REIMBURSEMENT COUNSELOR Gender Identity Not on file Sexual Orientation Not on file documented as of this encounter Last Filed Vital Signs Vital Sign Reading Time Taken Comments Blood Pressure 140/80 01/03/2004 11:30 AM CDT Pulse - - Temperature - - Respiratory Rate - - Oxygen Saturation - - Inhaled Oxygen Concentration - - Weight 101.2 kg (223 lb) 01/03/2004 11:30 AM CDT Height - - Body Mass Index - - documented in this encounter Plan of Treatment Upcoming Encounters Date Type Department Care Team (Late st Contact Info) Description 03/29/2025 9:40 AM REIMBURSEMENT COUNSELOR Office Visit [facility] Primary Care [address] [place] [address] Mychal Burgess MD [address] [place] [address] [address] [place] [address] documented as of this encounter Visit Diagnoses Not on filedocumented in this encounter Care Teams Production Trainer Relationship Specialty Start Date End Date Mychal Burgess MD PCP - General 07/19/07 documented as of this encounter
--- OUTSIDE RECORDS SUMMARY | 2025-03-26 07:45 | XMS_ITS | Encounter Summary ---
Author Organization [facility] Address [address] [place] [address] Care Team Providers Care Executive Office Manager Name Role Phone Mychal Burgess MD Primary Care Provider [phone] Encounter Details Date Type Department Care Team (Late Contact Info) Description 07/03/2004 Outpatient Historical [facility] Internal Medicine [address] [address] Mychal Burgess MD [address] [place] [address] Social History Tobacco Use Types Packs/Day Years Used Date Smoking Tobacco: Never Assessed Comments Unknown Sex and Gender Information Value Date Recorded Sex Assigned at Not on file Legal Sex Female 3:58 AM TITLE CHECKER Gender Identity Not on file Sexual Orientation Not on file documented as of this encounter Last Filed Vital Signs Vital Sign Reading Time Taken Comments Blood Pressure 130/70 07/03/2004 9:45 AM TITLE CHECKER Pulse - - Temperature - - Respiratory Rate - - Oxygen Saturation - - Inhaled Oxygen Concentration - - Weight 104.3 kg (230 lb) 07/03/2004 9:45 AM TITLE CHECKER Height - - Body Mass Index - - documented in this encounter Plan of Treatment Upcoming Encounters Date Type Department Care Team (Late Contact Info) Description 03/29/2025 9:40 AM TITLE CHECKER Office Visit [facility] Primary Care [address] [place] [address] Mychal Burgess MD [address] [place] [address] [address] [place] [address] documented as of this encounter Visit Diagnoses Not on filedocumented in this encounter Care Teams Executive Office Manager Relationship Specialty Start Date End Date Mychal Burgess MD PCP - General 07/19/07 documented as of this encounter
--- OUTSIDE RECORDS SUMMARY | 2025-03-26 07:45 | XMS_ITS | Encounter Summary ---
Author Organization [facility] Address [address] [place] [address] Care Team Providers Care Supervisor Porcelain Department Name Role Phone Mychal Burgess MD Primary Care Provider [phone] Encounter Details Date Type Department Care Team (Late st Contact Info) Description 03/31/2007 Orders Only [facility] Internal Medicine [address] [address] Mychal Burgess MD [address] [place] [address] Social History Tobacco Use Types Packs/Day Years Used Date Smoking Tobacco: Never Assessed Comments Unknown Sex and Gender Information Value Date Recorded Sex Assigned at Not on file Legal Sex Female 3:58 AM APPLICATION DEVELOPER Gender Identity Not on file Sexual Orientation Not on file documented as of this encounter Progress Notes * Mychal Burgess MD - 08/24/2007 12:46 PM CDT WEIGHT: 236lbs BLOOD PRESSURE: 112/70 Right Arm Sitting NURSE NAME: Tiffany Herrera R TOBACCO USE Patient does not currently use tobacco. CHIEF COMPLAINT Patient here for follow up hyperlipidemia, hypertension. HISTORY: HISTORY: 272.4-HYPERLIPIDEMIA The patient is tolerating the medications. 311-DEPRESSION The depression remains stable.off med 401.9-HYPERTENSION, UNSPECIFIED The patient denies chest pain, shortness of breath, dyspnea on exertion, pedal edema, or headache. 780.57-SLEEP APNEA The patient's sleep apnea continues to remain stable. 790.21-ABNORMAL FASTING BLOOD GLUCOSE inc--variable with diet ROS: ENDOCRINE: No heat or cold [...] no distress. EARS, NOSE, MOUTH AND THROAT: ORAL: Normal oropharynx. NECK/THYROID: Trachea midline. No thyroid enlargement, tenderness, or mass. No supraclavicular or cervical adenopathy. RESPIRATORY: Clear to auscultation and percussion. Normal respiratory effort. CARDIOVASCULAR: CARDIAC: Regular rhythm. No murmurs, rubs, or gallops. ARTERIAL: No aortic bruits. EDEMA/VARICOSITIES OF EXTREMITIES: No edema or varicosities. GASTROINTESTINAL: ABDOMEN: Soft, non-tender, without masses. Bowel sounds active. LIVER/SPLEEN/KIDNEY: No hepatosplenomegaly, tenderness or nodularity. Kidneys not palpable. SKIN: SKIN: Warm, dry, no diaphoresis, no significant lesions, irritation, rashes or ulcers. No induration, obvious subcutaneous nodules or tightening. ASSESSMENT/PLAN: 272.4-HYPERLIPIDEMIA con tmed add fibrate, enc diet and exercise ASSESSMENT: The risk of rhabdomyolysis with the combination of a statin and fibric acid medication versus the risk of atherosclerosis from hyperlipemia was discussed. The patient understands the riskand wishes to continue with the combination. Any muscle pain or weakness will be reported to me immediately. MEDICATIONS: FENOFIBRATE ORAL TABLET 54 MG, 1 Every Day, 90 Dispensed, 3 Fills, status: NEW PRESCRIPTION, 03/31/2007. ZOCOR ORAL TABLET 40 MG, 1 Every Day, 90 Dispensed, 3 Fills, 90 Duration/Days Supply, status: NEW PRESCRIPTION, 10/09/2004. 311-DEPRESSION discussed, hold med, reassess 401.9-HYPERTENSION, UNSPECIFIED cont med 782.3-EDEMA cont med for now --adjust med if inc, no edema today 790.21-ABNORMAL FASTING BLOOD GLUCOSE enc diet , reassess LAB ORDERS: 4 mo Order number: [id number] Test Ordered: COMPREHENSIVE METABOLIC PANEL & GFR 1112 Order number: [id number] Test Ordered: HEMOGLOBIN A1C 1814 Order number: [id number] Test Ordered: LIPID PANEL 1078 Order number: [id number] Test Ordered: TSH 1720 PREVENTIVE COUNSELING The patient was counseled regarding diet, regular sustained exercise for at least 30 minutes 3-4 times per week. Patient Education: Risks, benefits, and possible side effects of medication(s) were reviewed with the patient. The patient was allowed to ask questions to stated satisfaction. RETURN VISIT : Patient instructed to return in 4 months. Electronically Signed by: Mychal Burgess MD on Saturday, March 31, 2007 documented in this encounter Plan of Treatment Upcoming Encounters Date Type Department Care Team (Late st Contact Info) Description 03/29/2025 9:40 AM APPLICATION DEVELOPER Office Visit [facility] Primary Care [address] [place] [address] Mychal Burgess MD [address] [place] [address] [address] documented as of this encounter Visit Diagnoses Not on filedocumented in this encounter Care Teams Supervisor Porcelain Department Relationship Specialty Start Date End Date Mychal Burgess MD PCP - General 07/19/07 documented as of this encounter
--- OUTSIDE RECORDS SUMMARY | 2025-03-26 07:45 | XMS_ITS | Encounter Summary ---
Author Organization [facility] Address [address] [place] [address] Care Team Providers Care Diamond Picker Name Role Phone Mychal Burgess MD Primary Care Provider [phone] Encounter Details Date Type Department Care Team (Late Contact Info) Description 01/24/2006 Orders Only [facility] Internal Medicine [address] [address] Mychal Burgess MD [address] [place] [address] Social History Tobacco Use Types Packs/Day Years Used Date Smoking Tobacco: Never Assessed Comments Unknown Sex and Gender Information Value Date Recorded Sex Assigned at Not on file Legal Sex Female 3:58 AM CLINICAL DATA MANAGEMENT MANAGER Gender Identity Not on file Sexual Orientation Not on file documented as of this encounter Plan of Treatment Upcoming Encounters Date Type Department Care Team (Late st Contact Info) Description 03/29/2025 9:40 AM CLINICAL DATA MANAGEMENT MANAGER Office Visit [facility] Primary Care [address] [place] [address] Mychal Burgess MD [address] [place] [address] [address] [place] [address] documented as of this encounter Visit Diagnoses Not on filedocumented in this encounter Care Teams Diamond Picker Relationship Specialty Start Date End Date Mychal Burgess MD PCP - General 07/19/07 documented as of this encounter
--- OUTSIDE RECORDS SUMMARY | 2025-03-26 07:45 | XMS_ITS | Encounter Summary ---
Author Organization [facility] Address [address] [place] [address] Care Team Providers Care Customer Service Supervisor Name Role Phone Mychal Burgess MD Primary Care Provider [phone] Encounter Details Date Type Department Care Team (Late Contact Info) Description 03/13/2007 Orders Only [facility] Internal Medicine [address] [address] Mychal Burgess MD [address] [place] [address] Social History Tobacco Use Types Packs/Day Years Used Date Smoking Tobacco: Never Assessed Comments Unknown Sex and Gender Information Value Date Recorded Sex Assigned at Not on file Legal Sex Female 3:58 AM AMMONIA NITRATE OPERATOR Gender Identity Not on file Sexual Orientation Not on file documented as of this encounter Plan of Treatment Upcoming Encounters Date Type Department Care Team (Late st Contact Info) Description 03/29/2025 9:40 AM AMMONIA NITRATE OPERATOR Office Visit [facility] Primary Care [address] [place] [address] Mychal Burgess MD [address] [place] [address] [address] [place] [address] documented as of this encounter Visit Diagnoses Not on filedocumented in this encounter Care Teams Customer Service Supervisor Relationship Specialty Start Date End Date Mychal Burgess MD PCP - General 07/19/07 documented as of this encounter
--- OUTSIDE RECORDS SUMMARY | 2025-03-26 07:45 | XMS_ITS | Encounter Summary ---
Author Organization [facility] Address [address] [place] [address] Care Team Providers Care Tire Mechanic Name Role Phone Mychal Burgess MD Primary Care Provider [phone] Encounter Details Date Type Department Care Team (Late Contact Info) Description 02/21/2006 Orders Only [facility] Internal Medicine [address] [address] Mychal Burgess MD [address] [place] [address] Social History Tobacco Use Types Packs/Day Years Used Date Smoking Tobacco: Never Assessed Comments Unknown Sex and Gender Information Value Date Recorded Sex Assigned at Not on file Legal Sex Female 3:58 AM PLASTIC SURGERY TECHNICIAN Gender Identity Not on file Sexual Orientation Not on file documented as of this encounter Plan of Treatment Upcoming Encounters Date Type Department Care Team (Late st Contact Info) Description 03/29/2025 9:40 AM PLASTIC SURGERY TECHNICIAN Office Visit [facility] Primary Care [address] [place] [address] Mychal Burgess MD [address] [place] [address] [address] [place] [address] documented as of this encounter Visit Diagnoses Not on filedocumented in this encounter Care Teams Tire Mechanic Relationship Specialty Start Date End Date Mychal Burgess MD PCP - General 07/19/07 documented as of this encounter
--- OUTSIDE RECORDS SUMMARY | 2025-03-26 07:45 | XMS_ITS | Encounter Summary ---
Author Organization [facility] Address [address] [place] [address] Care Team Providers Care Restorative Aide Name Role Phone Mychal Burgess MD Primary Care Provider [phone] Encounter Details Date Type Department Care Team (Late Contact Info) Description 04/22/2005 Outpatient Historical [facility] Internal Medicine [address] [address] Mychal Burgess MD [address] [place] [address] Social History Tobacco Use Types Packs/Day Years Used Date Smoking Tobacco: Never Assessed Comments Unknown Sex and Gender Information Value Date Recorded Sex Assigned at Not on file Legal Sex Female 3:58 AM SHUTTLE THREADER Gender Identity Not on file Sexual Orientation Not on file documented as of this encounter Last Filed Vital Signs Vital Sign Reading Time Taken Comments Blood Pressure 130/80 04/22/2005 10:00 AM SHUTTLE THREADER Pulse - - Temperature - - Respiratory Rate - - Oxygen Saturation - - Inhaled Oxygen Concentration - - Weight 104.3 kg (230 lb) 04/22/2005 10:00 AM SHUTTLE THREADER Height - - Body Mass Index - - documented in this encounter Plan of Treatment Upcoming Encounters Date Type Department Care Team (Late Contact Info) Description 03/29/2025 9:40 AM SHUTTLE THREADER Office Visit [facility] Primary Care [address] [place] [address] Mychal Burgess MD [address] [place] [address] [address] [place] [address] documented as of this encounter Visit Diagnoses Not on filedocumented in this encounter Care Teams Restorative Aide Relationship Specialty Start Date End Date Mychal Burgess MD PCP - General 07/19/07 documented as of this encounter
--- OUTSIDE RECORDS SUMMARY | 2025-03-26 07:45 | XMS_ITS | Encounter Summary ---
Author Organization [facility] Address [address] [place] [address] Care Team Providers Care Record Clerk Name Role Phone Gonzalez Cruz MD Primary Care Provider [phone] Encounter Details Date Type Department Care Team (Late Contact Info) Description 08/21/2008 Outpatient Historical [facility] [place] [address] [facility] [address] [place] [address] Cholelithiasis NOS Social History Tobacco Use Types Packs/Day Years Used Date Smoking Tobacco: Former Cigarettes 1 35 0 04/11/1966 - 04/11/2001 Alcohol Use Standard Drinks/Week Comments No 0 (1 standard drink = 0.6 oz pur e alcohol) Comments No Sex and Gender Information Value Date Recorded Sex Assigned at Not on file Legal Sex Female 3:58 AM ATHLETICS DIRECTOR Gender Identity Not on file Sexual Orientation Not on file documented as of this encounter Plan of Treatment Upcoming Encounters Date Type Department Care Team (Late Contact Info) Description 03/29/2025 9:40 AM ATHLETICS DIRECTOR Office Visit [facility] [address] [place] [address] Gonzalez Cruz MD [address] [facility] [address] [place] [address] documented as of this encounter Procedures Procedure Name Priority Date/Time Associated Diagnosis Comments PATHOLOGY Routine 09/06/2008 9:47 AM CDT XR CHOLANGIOGRAM OPERATIVE Routine 09/06/2008 8:45 AM CDT CBC WITH DIFFERENTIAL Routine 08/26/2008 12:48 PM CDT HEPATIC FUNCTION PANEL Routine 9 12:48 PM CDT BASIC METABOLIC PANEL Routine 08/26/2008 12:48 PM CDT documented in this encounter Results * PATHOLOGY (09/06/2008 9:47 AM CDT) FINAL REPORT [facility] [address] [place], [place] [address] Patient: ELIAS TONEY : 1940 Procedure Date: 09/06/2008 Accession Date: 09/06/2008 Case No: [id number] Ordering Dr: LUZ WELLINGTON Case types AW, BW, FW, NW and SH are performed by [facility] [place], [place] SURGICAL PATHOLOGY & NON-GYNECOLOGIC CYTOPATHOLOGY REPORT DIAGNOSIS GALLBLADDER, LAPAROSCOPIC CHOLECYSTECTOMY: - MINIMAL CHRONIC INFLAMMATION. LIVER, WEDGE BIOPSY: - MILD PORTAL AND LOBULAR INFLAMMATION (SEE MICROSCOPIC DESCRIPTION AND COMMENT). Specimen Description: (1) Gallbladder; (2) liver biopsy. Operative Procedure: Laparoscopic cholecystectomy with cholangiogram, liver biopsy. Patient Information/Histor y/Diagnosis: Cholelithiasis, elevated liver function tests. Gross: Two containers are received labeled Elias Toney. Received in the first container, additionally labeled gallbladder, is a 10.1 x 3.8 x 2.3-cm intact gallbladder. The serosal surface is purple-green and dusky. Two lymph nodes are identified adjacent to the cystic duct, 0.9 and 1.0 cm in greatest dimension. The lumen contains a viscous, semitranslucent yellow bile. No stones are present. The gallbladder wall ranges in thickness from less than 0.1 to 0.3 cm. The area of thickened wall is edematous, but otherwise unremarkable. The mucosal surface is red-harris and velvety. No mucosal lesions are identified. Booth Manager sections are submitted in cassette A1. Received in the second container, additionally labeled liver biopsy, is a 0.8 x 0.6 x 0.3-cm unoriented piece of harris tissue. A membranous capsule is identified. The capsular surface is discolored bright red and glistening. The resection margin is marked with blue ink. The specimen is bisected and submitted entirely in cassette B1. BETH/KAYY 09.06.2008 03:40 pm Microscopic: The slides are labeled [id number], Toney Elias Tammy. Sections of the gallbladder show a rather thin gallbladder wall covered by intact mucosa. There are scattered lymphocytes within the lamina propria and through the gallbladder wall. There is no acute inflammation. Sections of the wedge biopsy of the liver show a very superficial wedge of liver parenchyma. There is minimal (less than 5%) macrovesicular steatosis without ballooning or Carla s hyaline. There is mild portal chronic inflammation with focal, mild interface activity. The inflammatory infiltrate consists mostly of lymphocytes, with a few plasma cells, eosinophils, and a rare neutrophil. No granulomas are seen. Bile ducts are present and appear normal. The lobules have minimal chronic inflammation with a rare acidophil body. Subcapsular liver is suboptimal for assessment of fibrosis, as septa emanating from the capsule are a normal finding. The biopsy does not appear cirrhotic. The trichrome stain highlights capsular and subcapsular fibrous stroma, without clear architectural abnormality. PAS-D stain is negative for alpha-1 antitrypsin globules; it does highlight a few portal macrophages. The iron stain demonstrates 1+/4 granular hepatocellular iroin in zone 1. COMMENT: The liver biopsy has mild portal inflammation with focal, very mild activity. According to the electronic medical record, the patient did have elevated transaminases in the Fall of 2007, but recent LFTs have been normal. The histologic findings in the biopsy are very mild and nonspecific, and could represent a drug reaction, viral infection, among many other possibilities. Clinical correlation is recommended. LIO/KAYY 09.09.2008 10:43 am Staging Form: No. ELECTRONIC SIGNATURE FOR RAFIA MERCADO MD- 09/09/08 04:43 pm INTERFACE SYSTEM 09/06/2008 9:47 AM CDT us Luz Wellington MD PATHOLOGY/CYTOLOGY ORDERABLES Final Result INTERFACE SYSTEM Refer to clinic/hospital department * XR CHOLANGIOGRAM OPERATIVE (09/06/2008 8:45 AM CDT) Anatomical Region Laterality Modality Abdomen Other 09/06/2008 8:45 AM CDT Narrative 09/06/2008 4:12 PM CDT [facility] [address] [place], [place] [address] Admit Date: 09/06/2008 ELIAS TONEY Sex: F Admit Prov: Date: 1940 Primary Care Prov: GONZALEZ CRUZ CMRN: [id number] Room: SURG-A SSN: [id number] IMAGING SERVICES Ordering Prov: N/A Accession Number: [id number] Interpretation Operative cholangiogram, 09/06/2008 Clinical History: Cholelithiasis, operative cholangiogram. Fluoroscopy of the abdominal right upper quadrant was utilized in the OR during performance of an operative cholangiogram with a single fluoroscopic spot radiograph obtained following contrast instillation of the bile ducts. The common duct is normal in caliber and smooth in outline, and there is no evidence of retained stone or other filling defect. There is unobstructed drainage of contrast into the second portion of the duodenum. IMPRESSION: Negative operative cholangiogram. . Dictated by: GERA PHILIPPE 09/06/2008 12:42 Electronically signed by: GERA PHILIPPE 09/06/2008 16:11 Transcribed: 09/06/2008 16:01 M Procedure Note Gera Philippe MD - 09/06/2008 [place] [id number] [place], [place] [address] Admit Date: 09/06/2008 ELIAS TONEY Sex: F Admit Prov: Date: 1940 Primary Care Prov: GONZALEZ CRUZ CMRN: [id number] Room: SURG-A SSN: [id number] IMAGING SERVICES Ordering Prov: N/A Interpretation Operative cholangiogram, 09/06/2008 Clinical History: Cholelithiasis, operative cholangiogram. Fluoroscopy of the abdominal right upper quadrant was utilized in theOR during performance of an operative cholangiogram with a singlefluoroscopic spot radiograph obtained following contrast instillation of the bileducts. The common duct is normal in caliber and smooth in outline, and thereis no evidence of retained stone or other filling defect. There isunobstructed drainage of contrast into the second portion of the duodenum. IMPRESSION: Negative operative cholangiogram. . Dictated by: GERA PHILIPPE 09/06/2008 12:42 Electronically signed by: GERA PHILIPPE 09/06/2008 16:11 Transcribed: 09/06/2008 16:01 SMM Luz Wellington MD DIAGNOSTIC IMAGING ORDERABLES Final Result * (ABNORMAL) BASIC METABOLIC PANEL (08/26/2008 12:48 PM CDT) CO2 26 22 - 30 mmol/L [facility] CREATININE 0.79 0.51 - 0.95 mg/dL [facility] POTASSIUM 3.8 3.5 - 4.9 mmol/L [facility] BUN 21(H) 6 - 20 mg/dL [facility] CHLORIDE 102 96 - 108 mmol/L [facility] GLUCOSE 153(H) 65 - 99 mg/dL [facility] SODIUM 143 135 - 145 mmol/L [facility] CALCIUM 9.7 8.6 - 10.2 mg/dL [facility] GFR, >60 >=60 mL/min/1. 7 sq meter [facility] GFR >60 >=60 mL/min/1. 7 sq meter [facility] Comment: Modification of Diet in Renal Disease (MDRD) study formula. Estimated GFR rate interpretative information for both Americans and non- Americans is available on the [facility] Intranet at: [email or web address] Select: Lab Policies and Procedures Select: Reference Ranges - GFR Blood specimen (specimen) 08/26/2008 12:48 PM CDT 08/26/2008 1:55 PM CDT Luz Wellington MD CHEMISTRY ORDERABLES Edited INTERFACE SYSTEM Refer to clinic/hospital department [facility] CLIA# [id number] [address] [place] [place] [address] * (ABNORMAL) CBC WITH DIFFERENTIAL (08/26/2008 12:48 PM CDT) WBC 10.2(H) 4.0 - 9.8 K/uL [facility] MCH 29.5 27.2 - 32.6 pg [facility] MPV 11.3 9.3 - 12.4 fL [facility] HEMATOCRIT 45.1(H) 35.5 - 44.0 % [facility] RDW-STDEV 40.8 37.1 - 48.7 fL [facility] RBC 5.09(H) 3.90 - 4.90 M/uL [facility] MCHC 33.3 31.5 - 35.5 % [facility] MCV 88.6 82.0 - 99.0 fL [facility] PLATELETS 253 140 - 350 K/uL [facility] HEMOGLOBIN 15.0(H) 11.8 - 14.8 g/dL [facility] RDW 12.7 11.5 - 14.5 % [facility] BASOPHILS 0 0 - 2 % [facility] BASOPHILS ABSOLUTE 0.02 0.00 - 0.20 K/uL [facility] MONOCYTES 7 3 - 13 % [facility] MONOCYTE ABSOLUTE 0.70 0.10 - 1.30 K/uL [facility] NEUTROPHILS 60 45 - 70 % [facility] NEUTROPHIL ABSOLUTE 6.10 1.90 - 7.00 K/uL [facility] EOSINOPHILS 2 0 - 7 % [facility] EOSINOPHIL ABSOLUTE 0.16 0.00 - 0.70 K/uL [facility] LYMPHOCYTES 32 16 - 45 % [facility] LYMPHOCYTE ABSOLUTE 3.21 0.70 - 4.50 K/uL [facility] Blood specimen (specimen) 08/26/2008 12:48 PM CDT 08/26/2008 1:55 PM CDT us Luz Wellington MD HEMATOLOGY ORDERABLES Edited Performing Organization Address [facility] Co de Phone Number INTERFACE SYSTEM Refer to clinic/hospital department [facility] CLIA# [id number] [address] [place] [address] * HEPATIC FUNCTION PANEL (08/26/2008 12:48 PM CDT) ALBUMIN 4.1 3.4 - 4.8 g/dL [facility] BILIRUBIN TOTAL 0.4 0.2 - 1.0 mg/dL [facility] ALT 25 0 - 31 U/L [facility] ALKALINE PHOSPHATASE 98 35 - 104 U/L [facility] TOTAL PROTEIN 7.0 6.3 - 8.6 g/dL [facility] BILIRUBIN DIRECT 0.1 0.0 - 0.3 mg/dL [facility] AST 27 12 - 32 U/L [facility] Blood specimen (specimen) 08/26/2008 12:48 PM CDT 08/26/2008 1:55 PM CDT us Luz Wellington MD CHEMISTRY ORDERABLES Final Res ult Performing Organization Address City/[facility] Co de Phone Number INTERFACE SYSTEM Refer to clinic/hospital department [facility] CLIA# [id number] [address] [place] [place] [address] documented in this encounter Visit Diagnoses Diagnosis Calculus of gallbladder without mention of cholecystitis or obstruction documented in this encounter Care Teams Record Clerk Relationship Specialty Start Date End Date Gonzalez Cruz MD PCP - General 07/19/07 documented as of this encounter
[2025-03-26 18:53] LABS: MALB Creatinine Ratio 54.0 mg/g (0-30)
[2025-03-26 19:11] LABS: Hematocrit 52.9 % (37.0-47.0); Hemoglobin 16.4 g/dL (12.0-15.0); Immature Granulocyte Percent A 0.5 % (0-0.5); Lymphocytes Absolute Auto 2.43 K/mm3 (0.9-3.2); Mean Corpuscular HGB Conc 31.0 g/dl (32-36); Mean Corpuscular Hemoglobin 27.8 pg (26-34); Mean Corpuscular Volume 89.7 fl (80-100); Nucleated Red Blood Cells Absolute Auto 0.000 K/mm3 (0.0-0.012); Nucleated Red Blood Cells Perc 0.0 % (0.0-0.2); Platelet Count Result 536 k/mm3 (150-375); Red Blood Count 5.90 M/mm3 (4.2-5.4); White Blood Count 13.2 K/mm3 (4.5-10.0)
[2025-03-26 19:31] LABS: Alanine Aminotransferase 29 U/L (6-35); Albumin Level 4.3 g/dL (3.5-5.1); Alkaline Phosphatase 86 U/L (38-126); Anion Gap 7 mmol/L (4-12); Aspartate Amino Transferase 153 U/L (14-36); Bilirubin,Total 0.6 mg/dL (0.2-1.3); Blood Urea Nitrogen 40 mg/dL (7-17); Calcium 11.0 mg/dL (8.4-10.2); Carbon Dioxide 33 mmol/L (22-30); Chloride 100 mmol/L (98-107); Cholesterol 135 mg/dL (0-200); Estimated Glomerular Filt Rate 40; Glucose 149 mg/dL (65-110); HDL Direct 32 mg/dL; Potassium 4.4 mmol/L (3.4-5.0); Sodium 140 mmol/L (137-145); Total Protein 7.5 g/dL (6.3-8.2); Triglycerides 176 mg/dL (<150)
[2025-03-26 20:02] LABS: Thyroid Stimulating Hormone 2.590 uIU/mL (0.465-4.680)
[2025-03-26 20:16] LABS: Hemoglobin A1C 6.8 % (<5.7)
[2025-03-26 20:21] LABS: Vitamin B12 947.0 pg/mL (239-931)
== END 2025-03-26 07:37 | disposition home or self-care (01) ==
LOC: ANHLAB 07:42 → ANHBWCLAB 07:47
PROVIDERS: PCP Internal Medicine; Visit Provider Internal Medicine
DX: E53.8 Deficiency of other specified B group vitamins (principal); E55.9 Vitamin D deficiency, unspecified; E11.22 Type 2 diabetes mellitus with diabetic chronic kidney disease; E78.49 Other hyperlipidemia; I12.9 Hypertensive chronic kidney disease with stage 1 through stage 4 chronic kidney disease, or unspecified chronic kidney disease; N18.30 Chronic kidney disease, stage 3 unspecified
CPT/HCPCS: 36415; 80053; 80061; 82043; 82306; 82607; 83036; 84443; 85025